=== PATIENT | female | born 1945 ===

== ENCOUNTER → 2021-02-09 09:28 | Outpatient (BNVA) | payer MEDICARE, MEDICAID, SELFPAY | PROVIDERS: PCP Nurse Practitioner Primary Care; Referring Provider Nurse Practitioner Primary Care; Visit Provider Internal Medicine | DX: I49.3 Ventricular premature depolarization (principal); I10 Essential (primary) hypertension | CPT/HCPCS: 93005; 99202 ==

== ENCOUNTER 2021-03-26 13:07 | Outpatient (REF) | payer MEDICARE, MEDICAID, SELFPAY ==
--- NOTE | ~2021-03-26 | MM_ITS ---
EXAMINATION: BONE DENSITOMETRY CLINICAL INDICATION: Osteoporosis. COMPARISON: None (current study represents initial baseline exam). TECHNIQUE: Using a [employer] DXA System (software version: 13.1) manufactured by [email or web address], dual-energy x-ray absorptiometry was performed of the lumbar spine and left hip. The images are of good technical quality. Summary results are attached. FINDINGS: AP SPINE L1-L3 (excluding L4): The data of L1-L4 has been changed to exclude the L4 vertebral body, because degenerative changes at this level may cause overestimation of lumbar spine density. BMD 1.016 g/cm2, Z-score -0.1, T-score -1.3, osteopenia. LEFT FEMUR, NECK: BMD 0.832 g/cm2, Z-score 0.1, T-score -1.5, osteopenia. LEFT FEMUR, TOTAL: BMD 0.976 g/cm2, Z-score 1.1, T-score -0.2, normal. IDENTIFIED RISK FACTORS: Osteoporosis. Early menopause, secondary osteoporosis, hysterectomy, bilateral oophorectomy. HISTORY OF FRACTURE: None listed. MEDICATIONS: Vitamin D, bisphosphonate. MM/XR DEXA axial skeleton IMPRESSION: 1. DIAGNOSIS: Osteopenia based on the lowest T-score value of -1.5 in the femoral neck applying World Health Organization criteria. 2. 10-YEAR FRACTURE RISK PREDICTION, FRAX: Major osteoporotic fracture (clinical spine, forearm, hip or shoulder) 6.1%. Hip fracture 1.2%. 3. Treatment Recommendations: NOF guidelines recommend consideration for treatment in postmenopausal women and men age 50 and older presenting with the following: -A hip or vertebral (clinical or morphometric) fracture. -T-score less than or equal to -2.5 at the femoral neck or spine after appropriate evaluation to exclude secondary causes. -Low bone mass at the hip or spine and a 10-year fracture probability by FRAX of greater than or equal to 3% for hip fracture or greater than or equal to 20% for major osteoporotic fracture based on the [place] adapted WHO algorithm. 4. Other Recommendations: All treatment decisions require clinical judgment and consideration of individual patient factors, including patient preferences, comorbidities, previous drug use, risk factors not captured in the FRAX model (e.g. frailty, falls, vitamin D deficiency, increased bone turnover, interval significant decline in bone density) and possible under or overestimation of fracture risk by FRAX. Additional medical evaluation for secondary cause of low bone mineral density may be appropriate. FUTURE SCAN RECOMMENDATION: People with diagnosed cases of osteoporosis or at high risk for fracture should have regular bone mineral density tests. For patients eligible for Medicare, routine testing is allowed once every 2 years. The testing frequency can be increased to one year for patients who have rapidly progressing disease, those who are receiving or discontinuing medical therapy to restore bone mass, or have additional risk factors.
--- NOTE | 2021-03-26 14:10 | HM_ITS ---
Total monitoring time 2 days and 13 hours. Underlying rhythm is sinus. Average heart rate 70/Min. Minimum 58/Min. Maximum 120/Min. No atrial fibrillation or flutter or AV blocks or pauses. Frequent supraventricular ectopy. [place] 5.9%. 236 supraventricular episodes; longest, 17 beats at 118/min. Occasional ventricular ectopy. 2 morphologies and 12 couplets. Overall burden 0.85%. No patient events. MTDD
--- NOTE | 2021-03-26 14:10 | CA_ITS ---
Transthoracic Echocardiogram Patient (Last, First, Middle): Lidia Paez, Gender: Female Date of : 1945 Age: 76 Procedure Date: 03/26/2021 Procedure Type: Transthoracic Echocardiogram Location: OP Height: 147.32 cm Weight: 81.65 kg BSA: 1.74 m2 Heart Rate: bpm BP: 122 / 60 mmHg Supervisor Coin Machine: Referring MD: Pedro Luis Culp MD Commercial Credit Portfolio Manager: Raleigh Loaiza MD Symptoms: I49.3 - Ventricular premature depolarization Study Quality: Fair ECG Rhythm: Sinus with extra beats Conclusions: - 1. Normal LV systolic function with grade 1 diastolic dysfunction 2. Mildly dilated left atrium 3. Normal cardiac valvular Doppler 4. Normal RV systolic pressure 5. Trivial pericardial effusion Findings Left Ventricle Normal left ventricular size, thickness, and systolic function. The visually estimated ejection fraction is between 60-65%. Spectral Doppler is indicative of an impaired relaxation filling pattern. E/E prime ratio is <8, consistent with normal filling pressures. Evidence suggests grade I (mild) diastolic dysfunction. Right Ventricle Normal right ventricular cavity size and systolic function. Atria The left atrium is mildly dilated. There is no evidence of interatrial shunt. The right atrium is likely dilated. Aortic Valve Normal aortic valve structure and function. There is no aortic valve stenosis. There is no aortic valve regurgitation. Mitral Valve Normal mitral valve structure and function. There is trace mitral valve regurgitation. There is no mitral valve stenosis. Pulmonic Valve The pulmonic valve is likely normal. There is trace pulmonic valve regurgitation. Tricuspid Valve Normal tricuspid valve structure. There is trace tricuspid valve regurgitation. The right ventricular systolic pressure is normal. The right ventricular systolic pressure is 19 mmHg. There is no evidence of pulmonary hypertension. Great Vessels All visible segments of the aorta are normal in size. The pulmonary artery was not well visualized. Venous The inferior vena cava is normal in size and collapses greater than 50% with inspiration. Pericardium/Pleural There is a trivial circumferential pericardial effusion. Prior Study Comparison No prior study available for comparison. Measurements 2D Linear Measurements IVSd: 1.00 0.6-0.9/0.6-1.0 cm LVIDd: 4.82 3.9-5.3/4.2-5.9 cm LVIDd Index: 2.77 2.4-3.2/2.2-3.1 cm/m2 LVIDs: 3.31 2.0-3.6 cm LVPWd: 1.03 0.7-1.1 cm Ao Root: 2.60 2.1-3.5 cm LA Diam: 3.80 2.7-3.8/3.0-4.0 cm LAIDs Index: 2.18 1.5-2.3 cm/m2 LV Mass: 217.82 67-162/88-224 g LV Mass Index: 125.18 43-95/49-115 g/m2 LVOT Diam: 2.00 3.0+(-)1.3 cm 2D Systolic Function EF 4C: 60.30 >55% EF 2C: 58.10 >55% EF BiP: 60.00 >55% Mitral Valve MV Pk E: 0.55 MV PK A: 0.78 MV Decel Time: 236.00 E/A: 0.70 E'Lateral: 7.72 E'Medial: 5.22 E/E' Med: 10.60 E/E' Lat: 7.10 PHT: 69.00 MVA PHT: 3.19 Decel Zapata: 2.34 Aortic Valve AoV Pk Lloyd: 1.52 AoV Mn Lloyd: 1.03 AoV VTI: 0.40 AoV Pk Grad: 9.00 Aov Mn Grad: 5.00 RAY Cont.VTI: 1.65 LVOT LVOT Pk Lloyd: 0.83 LVOT Mn Lloyd: 0.57 LVOT VTI: 0.21 LVOT Pk Grad: 3.00 LVOT Mn Grad: 2.00 LVOT Diam: 2.00 LVOT Area: 3.14 Diastolic Function MV Pk E: 0.55 MV Pk A: 0.78 E/A: 0.70 E'Medial: 5.22 E/E' Med: 10.60 E' Laterial: 7.72 E/E' Lat: 7.10 Tricuspid Valve TR Pk Lloyd: 1.97 TR Pk Grad: 16.00 RA Press: 3.00 RVSP: 19.00 Great Vessels Aorta Ao Root-2D: 2.60 2.0-3.7 cm Ao Asc: 2.90 2.1-3.4 cm Pulmonary Valve PV Pk Lloyd: 1.07 Peak PV Grad: 5.00 Updated in Other Vendor System with Status of Final Raleigh Loaiza MD electronically signed on 03/27/2021 12:25:33 PM with status of Final
== END 2021-03-26 13:08 | disposition home or self-care (01) ==
LOC: HO.MAMMO 13:07
PROVIDERS: Visit Provider Internal Medicine
DX: Z13.820 Encounter for screening for osteoporosis (principal); M81.0 Age-related osteoporosis without current pathological fracture; Z78.0 Asymptomatic menopausal state; Z79.899 Other long term (current) drug therapy; I49.3 Ventricular premature depolarization
CPT/HCPCS: 77080; 93242; 93306

== ENCOUNTER → 2021-04-07 12:45 | Outpatient (BNVA) | payer MEDICARE, MEDICAID, SELFPAY | PROVIDERS: PCP Nurse Practitioner Primary Care; Referring Provider Nurse Practitioner Primary Care; Visit Provider Nurse Practitioner Family | DX: I49.1 Atrial premature depolarization (principal); I49.3 Ventricular premature depolarization; I10 Essential (primary) hypertension; R00.2 Palpitations | CPT/HCPCS: 99212 ==

== ENCOUNTER 2021-05-20 11:30 | Outpatient (REF) | payer MEDICARE, MEDICAID, SELFPAY ==
[2021-05-20 12:58] LABS: MANUAL DIFF FLAG NO
[2021-05-20 13:24] LABS: Basophils Percent Auto 0.3 % (0-2); Eosinophils Absolute Auto 0.1 X10*3/uL (0.0-0.4); Hematocrit 37.7 % (37.0-47.0); Hemoglobin 12.5 g/dl (12.0-16.0); Imm Gran Abs Auto 0.01 X10*3/uL (0.00-0.03); Imm Gran Pct Auto 0.2 % (0.0-0.4); Lymphocytes Absolute Auto 2.3 X10*3/uL (1.2-4.9); Lymphocytes Percent Auto 38.5 % (20-40); Mean Corpuscular HGB Conc 33.2 g/dl (31.0-35.0); Mean Corpuscular Hemoglobin 28.8 pg (27.0-33.0); Mean Corpuscular Volume 86.9 fL (80.0-98.0); Mean Platelet Volume 10.9 fL (9.4-12.3); Monocytes Absolute Auto 0.5 X10*3/uL (0.1-1.2); Monocytes Percent Auto 7.7 % (2-11); Neutrophils Absolute Auto 3.1 x10*3/uL (2.0-8.3); Neutrophils Percent Auto 52.3 % (45-73); Platelet Count 156 X10*3/uL (160-400); Red Blood Count 4.34 X10*6/uL (4.20-5.50); White Blood Count 5.8 X10*3/uL (4.8-10.8)
[2021-05-20 14:05] LABS: Alanine Aminotransferase 27 U/L (0-31); Albumin Level 4.1 g/dL (3.5-5.0); Alkaline Phosphatase 52 U/L (39-117); Anion Gap 11 (12-20); Aspartate Amino Transferase 26 U/L (5-31); Bilirubin Total 0.8 mg/dL (0.0-1.0); Blood Urea Nitrogen 10 mg/dL (9-16); Calcium 9.7 mg/dL (8.4-10.2); Carbon Dioxide 27 mmol/L (22-29); Chloride 100 mmol/L (96-108); Estimated Glomerular Filt Rate > 60; Glucose Random 113 mg/dL (60-115); Potassium 4.4 mmol/L (3.3-5.1); Sodium 134 mmol/L (135-145); Total Protein 8.4 g/dL (6.5-8.0)
[2021-05-20 14:17] LABS: TSH reflex Free T4 0.49 uIU/mL (0.32-4.0)
== END 2021-05-20 11:31 | disposition home or self-care (01) ==
LOC: HO.LAB 11:30
PROVIDERS: PCP Nurse Practitioner Primary Care; Referring Provider Nurse Practitioner Primary Care; Visit Provider Nurse Practitioner
DX: K59.09 Other constipation (principal)
CPT/HCPCS: 36415; 80053; 84443; 85025; 99202

== ENCOUNTER → 2021-07-16 12:26 | Outpatient (BNVA) | payer MEDICARE, MEDICAID, SELFPAY | PROVIDERS: PCP Nurse Practitioner Primary Care; Visit Provider Nurse Practitioner | DX: K59.09 Other constipation (principal); R14.0 Abdominal distension (gaseous) | CPT/HCPCS: 99212 ==

== ENCOUNTER → 2021-08-02 12:31 | Outpatient (BNVA) | payer MEDICARE, SELFPAY | PROVIDERS: PCP Nurse Practitioner Primary Care; Referring Provider Nurse Practitioner Primary Care; Visit Provider Nurse Practitioner | DX: K59.09 Other constipation (principal) | CPT/HCPCS: 99212 ==

== ENCOUNTER 2021-08-06 14:05 | Outpatient (REF) | payer OTHER, SELFPAY ==
--- NOTE | ~2021-08-06 | MM_ITS ---
EXAMINATION: MM SCREENING DIGITAL BREAST TOMOSYNTHESIS, BILATERAL CLINICAL INFORMATION: Screening. Asymptomatic. Unable to locate prior outside imaging. Age 76. The lifetime risk of breast cancer based on the Tyrer-Cuzick Model is 3%. COMPARISON: None. TECHNIQUE: Digital breast tomosynthesis is performed in both the craniocaudal and mediolateral oblique views along with computer-aided detection (CAD). Synthesized 2D images are generated from the tomosynthesis. Additional left MLO view is provided. FINDINGS: There are scattered areas of fibroglandular density (ACR BI-RADS breast composition Category b). There are no significant masses, abnormal calcifications, or other abnormalities. No architectural abnormality. There are scattered bilateral round and vascular calcifications. The axilla and skin contours are unremarkable. MM/MM tomosynthesis screening BI IMPRESSION: No mammographic evidence of malignancy. ASSESSMENT: BI-RADS 2: Benign RECOMMENDATION: Routine annual mammography screening. This patient's information was entered into a reminder system with a target due date for their next mammogram.
== END 2021-08-06 14:06 | disposition home or self-care (01) ==
LOC: HO.MAMMO 14:05
PROVIDERS: Visit Provider Nurse Practitioner Primary Care
DX: Z12.31 Encounter for screening mammogram for malignant neoplasm of breast (principal)
CPT/HCPCS: 77063; 77067

== ENCOUNTER → 2021-10-12 11:46 | Outpatient (BNVA) | payer OTHER, SELFPAY | PROVIDERS: PCP Nurse Practitioner Primary Care; Referring Provider Nurse Practitioner Primary Care; Visit Provider Nurse Practitioner Family | DX: R00.2 Palpitations (principal); I49.1 Atrial premature depolarization; I49.3 Ventricular premature depolarization; I10 Essential (primary) hypertension; Z79.899 Other long term (current) drug therapy | CPT/HCPCS: 99212 ==

== ENCOUNTER → 2021-11-18 08:46 | Outpatient (BNVA) | payer OTHER, SELFPAY | PROVIDERS: PCP Nurse Practitioner Primary Care; Visit Provider Surgery Vascular Surgery | DX: I83.11 Varicose veins of right lower extremity with inflammation (principal) | CPT/HCPCS: 99212 ==

== ENCOUNTER 2022-01-11 08:06 | Outpatient (REF) | payer OTHER, SELFPAY ==
--- NOTE | ~2022-01-11 | US_ITS ---
EXAMINATION: RIGHT and LEFT LOWER EXTREMITY VENOUS ULTRASOUND (Reflux Exam) CLINICAL INDICATION: Varicose veins of right lower extremity with inflammation. COMPARISON: None. TECHNIQUE: Color flow triplex imaging and compression Doppler was performed to evaluate both the deep and the superficial systems bilaterally. To evaluate the superficial system, the examination was performed in the upright position. Color-flow Doppler ultrasound and compression ultrasound were utilized. In addition, maneuvers were utilized to demonstrate reflux. FINDINGS: 1. DEEP VENOUS ULTRASOUND OF THE RIGHT LOWER EXTREMITY: Respiratory variation, normal compression and augmented flow are noted in the right common femoral vein as well as the right popliteal vein and there is no evidence of deep venous thrombosis at these locations. There is no evidence of reflux in the deep system in either the common femoral vein or the popliteal vein. There is no evidence of a Johns's cyst. 2. SUPERFICIAL ULTRASOUND WITH DOPPLER OF RIGHT LOWER EXTREMITY: The right great saphenous vein at the saphenofemoral junction measures 11 mm, at the mid thigh 4 mm, idrex-gsu-ycda 4 mm, hcmcd-wdg-sltx 5 mm, at mid calf 3 mm and at the ankle measures 3 mm. There is reflux in the greater saphenous vein at the mid calf and ankle measuring 1808 ms. The right small saphenous vein measures 2 mm and shows reflux measuring 2920 ms. 3. DEEP VENOUS ULTRASOUND OF THE LEFT LOWER EXTREMITY: Respiratory variation, normal compression and augmented flow are noted in the left common femoral vein as well as the left popliteal vein and there is no evidence of deep venous thrombosis at these locations. There is no evidence of reflux in the deep system in either the common femoral vein or the popliteal vein. . There is no evidence of a Johns's cyst. 4. SUPERFICIAL ULTRASOUND WITH DOPPLER OF LEFT LOWER EXTREMITY: Left great saphenous vein at the saphenofemoral junction measures 10 mm, at the mid thigh 4 mm, rmdxf-frr-jmfu 6 mm, heakg-hyd-afsx 4 mm, at mid calf 3 mm and at the ankle measures 2 mm. There is reflux at the ankle measuring 2212 ms, no other areas of reflux. The left small saphenous vein measures 2 mm and shows reflux at the distal calf measuring 1720 ms. US/US venous duplex LE BI IMPRESSION: 1. No evidence of reflux or thrombus in the common femoral veins or popliteal veins bilaterally. 2. There is reflux in the right great saphenous vein at the mid calf and ankle and in the left great saphenous vein at the ankle. Reflux in the small saphenous veins bilaterally.
== END 2022-01-11 08:07 | disposition home or self-care (01) ==
LOC: HO.US 08:06
PROVIDERS: Visit Provider Surgery Vascular Surgery
DX: I83.11 Varicose veins of right lower extremity with inflammation (principal)
CPT/HCPCS: 93970

== ENCOUNTER → 2022-01-18 11:13 | Outpatient (BNVA) | payer OTHER, SELFPAY | PROVIDERS: PCP Nurse Practitioner Primary Care; Visit Provider Surgery Vascular Surgery | DX: I83.11 Varicose veins of right lower extremity with inflammation (principal) | CPT/HCPCS: 99212 ==

== ENCOUNTER → 2022-05-19 14:17 | Outpatient (BNVA) | payer OTHER, SELFPAY | PROVIDERS: PCP Nurse Practitioner Primary Care; Visit Provider Surgery Vascular Surgery | DX: I83.11 Varicose veins of right lower extremity with inflammation (principal) | CPT/HCPCS: 99212 ==

== ENCOUNTER → 2022-07-08 09:27 | Outpatient (BNVA) | payer OTHER, SELFPAY | PROVIDERS: PCP Nurse Practitioner Primary Care; Visit Provider Surgery Vascular Surgery | DX: I83.11 Varicose veins of right lower extremity with inflammation (principal) | CPT/HCPCS: 36475 ==

== ENCOUNTER 2022-07-11 15:15 | Outpatient (REF) | payer OTHER, SELFPAY ==
--- NOTE | ~2022-07-11 | US_ITS ---
EXAMINATION: TRIPLEX SCANNING OF RIGHT LOWER EXTREMITY; SUPERFICIAL ULTRASOUND WITH DOPPLER OF RIGHT LOWER EXTREMITY CLINICAL INFORMATION: Status post RF ablation of the right small saphenous vein. Originally performed on 07/08/2022. COMPARISON: 01/11/2022. TECHNIQUE: Color flow triplex imaging and compression Doppler were performed as well as superficial ultrasound with Doppler. FINDINGS: TRIPLEX SCANNING OF RIGHT LOWER EXTREMITY: Respiratory variation, normal compression and augmented flow are noted throughout the lower extremity. The visualized common femoral vein, femoral vein, profunda femoral vein, popliteal vein and the calf veins show no evidence of deep venous thrombosis. There is no evidence of Johns's cyst. SUPERFICIAL ULTRASOUND WITH DOPPLER OF RIGHT LOWER EXTREMITY: The right small saphenous vein is occluded from the access site to 4 cm before the popliteal junction. There is no extension of thrombus into the deep system. US/US venous duplex LE RT IMPRESSION: 1. Normal triplex scan of the right without evidence of deep venous thrombosis. 2. Excellent appearance status post ablation of the right small saphenous vein.
== END 2022-07-11 15:16 | disposition home or self-care (01) ==
LOC: HO.US 15:15
PROVIDERS: PCP Nurse Practitioner Primary Care; Visit Provider Surgery Vascular Surgery
DX: M79.604 Pain in right leg (principal)
CPT/HCPCS: 93971

== ENCOUNTER → 2022-07-21 09:00 | Outpatient (BNVA) | payer OTHER, SELFPAY | PROVIDERS: PCP Nurse Practitioner Primary Care; Visit Provider Surgery Vascular Surgery | DX: I83.11 Varicose veins of right lower extremity with inflammation (principal) | CPT/HCPCS: 99212 ==

== ENCOUNTER 2022-10-12 08:46 | Outpatient (AMB) | payer OTHER, SELFPAY ==
--- NOTE | 2022-10-12 08:52 | MHC.OFFVIS ---
Intake Vital Signs 10/12/22 08:53 Height 5 ft 1 in Weight 191 lb 12.835 oz BMI 36.2 BP 110/56 L Blood Pressure Location Lt brachial Position Sitting Pulse 89 Intake Visit Reasons: 1 yr f/up per dc Intake Note: 1 year follow up w/ EKG Aircraft Instrument Tester Required: Yes Aircraft Instrument Tester Language: Hull And Deck Remover Name: Renay [id number] Accompanied by: Daughter Allergies No Known Allergies Allergy (Verified 10/12/22 08:53) Medication List - Last Reconciled 10/12/22 by Pedro Luis Culp MD nifedipine ER 30 mg PO DAILY HPI HPI Comments History of Present Illness Details Lidia returns for follow-up. In the past she has been seen regarding premature atrial ventricular contractions. Overall, she states she feels fine. No specific complaints like angina or shortness of breath or in fact anything cardiac sounding. She states she is doing very well. Has hypertension for which she is on nifedipine and has taken this for a while. [facility] Medical History Chronic constipation Essential hypertension Multiple food allergies Osteoporosis Prediabetes Surgical History H/O section History of cataract surgery History of cholecystectomy History of colonoscopy History of hemorrhoidectomy (~1993) History of hysterectomy History of partial colectomy Family History Father No problems noted. Mother No problems noted. Social History Patient Tobacco Use Status: Never used Tobacco Review of Systems Const Denies weakness ENT Denies dizziness Card Denies chest pain, Denies chest pain with activity, Denies syncope, Denies rapid heart rate, Denies pedal edema, Denies edema, Denies leg edema, Denies lightheadedness, Denies palpitations, Denies dyspnea, Denies dyspnea on exertion and Denies orthopnea Resp Denies cough, Denies dyspnea and Denies dyspnea on exertion GI Denies hematochezia and Denies change in stool character Musc Denies abnormal gait, Denies muscle cramps, Denies muscle weakness, Denies numbness, Denies radiating pain into limb and Denies tingling Neuro Denies abnormal gait, Denies dizziness, Denies syncope, Denies numbness, Denies tingling and Denies weakness Endo Denies palpitations Physical Exam Vital Signs: Last Vital Signs Pulse 89 10/12/22 08:53 BP 110/56 L 10/12/22 08:53 BMI result Body Mass Index 36.2 Const General: comfortable and no acute distress Orientation/consciousness: patient oriented x3 HEENT Other: Unremarkable Head: Yes normal to inspection Neck Neck: Yes normal visual inspection Chest Chest palpation & inspection: normal inspection of the chest Resp Auscultation: clear to auscultation bilaterally Cardio Palpation: normal PMI Heart sounds: S1 normal heart sound present, S2 normal heart sound present, no gallops, no murmurs and no rubs GI Palpation (GI): Soft to palpation Back/Spine/Pelvis Other: unremarkable Skin General skin exam: no rashes or lesions noted Neuro General: patient oriented x3 Extrem General: Yes normal to inspection Psych Mental Status: mental status grossly normal Office Procedures EKG Details: EKG with sinus rhythm at 89/Min; no significant ST-T changes; premature supraventricular complexes; [place] [id number], Complete Assessment & Plan Assessment & Plan (1) PAC (premature atrial contraction): Code(s): I49.1 - Atrial premature depolarization Plan: Holter shows underlying sinus rhythm with frequent supraventricular ectopy. Possibly increased risk of atrial fibrillation the future and we can repeat another Holter before next visit. (2) PVC (premature ventricular contraction): Code(s): I49.3 - Ventricular premature depolarization Plan: In a prior EKG, premature ventricular complexes seen but nothing on EKG today. She does not have any symptoms either. No specific interventions. (3) Essential hypertension: Code(s): I10 - Essential (primary) hypertension Plan: Stable on nifedipine. No changes. Plan golf caddie used in discussion. Orders: Orders CA echo transthoracic complete 51 Weeks I49.1 - Atrial premature depolarization ECG 3 day holter monitor 51 Weeks I49.1 - Atrial premature depolarization, I49.3 - Ventricular premature depolarization Coding Level of Care Code Est Pt Level 3 (89657) Diagnoses PAC (premature atrial contraction) I49.1 PVC (premature ventricular contraction) I49.3 Essential hypertension I10 CPT Codes EKG - CPT: [id number], Complete ([id number])
[2022-10-12 08:53] VITALS: BP 110/56; PULSE 89; BMI 36.2
== END 2022-10-12 09:10 | disposition home or self-care (01) ==
PROVIDERS: PCP Nurse Practitioner Primary Care; Referring Provider Nurse Practitioner Primary Care; Visit Provider Internal Medicine
DX: I49.1 Atrial premature depolarization (principal); I49.3 Ventricular premature depolarization; I10 Essential (primary) hypertension
CPT/HCPCS: 93010; 99213

== ENCOUNTER → 2022-10-12 08:46 | Outpatient (BNVA) | payer MEDICARE, MEDICAID, SELFPAY | PROVIDERS: PCP Nurse Practitioner Primary Care; Referring Provider Nurse Practitioner Primary Care; Visit Provider Internal Medicine | DX: I49.1 Atrial premature depolarization (principal); I49.3 Ventricular premature depolarization; I10 Essential (primary) hypertension; Z79.899 Other long term (current) drug therapy | CPT/HCPCS: 93005; 99212 ==

== ENCOUNTER 2023-06-30 18:29 | Outpatient (REF) | payer MEDICARE, SELFPAY ==
[2023-07-01 08:17] LABS: Bacterial Vaginosis PCR NEGATIVE (Negative); Candida Group PCR NOT DETECTED (Not Detect); Candida glab krusei PCR NOT DETECTED (Not Detect); Trichomonas vaginalis PCR NOT DETECTED (Not Detect)
== END 2023-06-30 18:30 | disposition home or self-care (01) ==
LOC: HO.HHCLNP 18:29
PROVIDERS: Visit Provider Nurse Practitioner Primary Care
DX: N94.9 Unspecified condition associated with female genital organs and menstrual cycle (principal)
CPT/HCPCS: 0352U

== ENCOUNTER 2023-09-21 09:54 | Outpatient (AMB) | payer OTHER, SELFPAY ==
[2023-09-21 10:11] VITALS: BP 106/45; PULSE 93; BMI 36.0
--- NOTE | 2023-09-21 10:11 | A.OFFVIS_ITS ---
Vital Signs 09/21/23 10:11 Height 5 ft 1 in Weight 190 lb 7.67 oz BMI 36.0 BP 106/45 L Blood Pressure Location Lt brachial Position Sitting Pulse 93 Intake Visit Reasons: constipation Intake Note: Lidia presents in the office as a 3 week follow up for CIC. CC: PT states that she is still having constipation still. She wants to change the medication that she is on. She feels like it is too strong. 30 min after taking meds she has to go to the bathroom and she is in there for a long time. She says she wants something that it not too heavy on her stomach. The medication is giving her diarrhea. Electronic Wirer Required: Yes Electronic Wirer Name: [facility] interpeter Accompanied by: Family/Other Allergies No Known Allergies Allergy (Verified 10/12/22 08:53) PFSH Medical History Chronic constipation Essential hypertension Multiple food allergies Osteoporosis Prediabetes Surgical History H/O section History of cataract surgery History of cholecystectomy History of colonoscopy History of hemorrhoidectomy (~1993) History of hysterectomy History of partial colectomy Family History Father No problems noted. Mother No problems noted. Social History Patient Tobacco Use Status: Never used Tobacco Coding
--- NOTE | 2023-09-21 10:11 | A.OFFVIS_ITS ---
Vital Signs 09/21/23 10:11 Height 5 ft 1 in Weight 190 lb 7.67 oz BMI 36.0 BP 106/45 L Blood Pressure Location Lt brachial Position Sitting Pulse 93 Intake Visit Reasons: constipation Allergies No Known Allergies Allergy (Verified 10/12/22 08:53) HPI HPI constipation: Details: Assessment & Plan (1) Chronic constipation: Code(s): K59.09 - Other constipation Plan: French #[id number], Miky. She is here with a female family member who is supportive. She received the Trulance, but it is too strong for her. She was well controlled on the Linzess 290 so we will try to get that approved for her now that she has failed the Trulance which was preferred by her insurance. She continues on the simethicone for her gas trapping. Return office visit in 6 weeks Medications: New lubiprostone (Amitiza) 8 mcg PO BID 60 caps 6RF K59.09 - Other constipation On Hold plecanatide (Trulance) Hold Comment: Doctor's Order 3 mg PO DAILY 30 tabs 6RF K59.09 - Other constipation TODAY'S VISIT French #Vanessara White She is here today with multiple family members who are supportive Patient has been lost follow-up since 2021; she says that she lost her number and was not sure where to call for GI follow-up. I made her she had multiple copies of my business card. She has been out of the Amitiza since she has been lost to follow up since 07/2021 - but when she had it the effect was wonderful. She is very concerned that the continued CIC will trigger her hemorrhoids, which required surgery in the past. She is having a lot of gas and bloating. This would likely be r/t the CIC. Apparently, she was telling her PCP about her sx and they were telling her to just take the medication, however, she was not receiving the medicine as it likely needed a PA. She thinks she is due for a colonoscopy, her last being in [place] about 10 years ago. She has never had polyps and there is no known FHX of crc or polyps. She watches the Cologuard video in French and agrees that this would be a good screening option for her. ROV 6 weeks. PFSH Medical History Chronic constipation Essential hypertension Multiple food allergies Osteoporosis Prediabetes Surgical History H/O section History of cataract surgery History of cholecystectomy History of colonoscopy History of hemorrhoidectomy (~1993) History of hysterectomy History of partial colectomy Family History Father No problems noted. Mother No problems noted. Social History Patient Tobacco Use Status: Never used Tobacco Review of Systems Const Denies fatigue, Denies fever(s), Denies night sweats, Denies poor appetite and Denies weight loss Eyes Details: glasses Reports requires corrective lenses ENT Reports Normal hearing present, Denies dental pain, Denies dysphagia, Denies hearing loss, Denies mouth pain, Denies odynophagia, Denies throat swelling, Denies tongue swelling and Reports other (Dentition adequate) Card Reports no additional complaints Resp Reports no additional complaints GI Details: Denies abdominal pain, Denies melena, Reports bloating, Denies hematochezia, Reports constipation, Denies GI cramping, Denies dysphagia, Denies excessive flatus, Denies early satiety, Denies heartburn, Denies diarrhea, Denies nausea, Denies odynophagia, Denies vomiting and Denies hematemesis Skin/Breast Denies pruritus, Denies lesions, Denies rash and Denies jaundice Neuro Reports Normal hearing present and Denies Abnormal speech present Endo Denies fatigue Aller/Immun Denies throat swelling and Denies tongue swelling Physical Exam Vital Signs: Last Vital Signs Pulse 93 09/21/23 10:11 BP 106/45 L 09/21/23 10:11 BMI result Body Mass Index 36.0 Const General: cooperative, no acute distress, well developed and well groomed Nutritional Appearance: well nourished and obese Orientation/consciousness: oriented to person, oriented to place and oriented to time Limitations: language barrier HEENT Head: Yes normocephalic and Yes atraumatic Eyes General: appearance normal, both eyes and all related structures Pupils: Equal, round and reactive pupils present Neck Neck: Yes normal visual inspection and Yes no lymphadenopathy Thyroid: Thyroid normal Resp Effort & Inspection: normal respiratory effort and able to speak in complete sentences Auscultation: clear to auscultation bilaterally Cardio Rate: regular rate Rhythm: regular rhythm Heart sounds: Normal, physiologic split S2 sound present Peripheral pulses: radial pulses present and posterior tibial pulses present GI Inspection: No distended, Yes Abdominal panniculus present and Yes obesity Palpation (GI): Soft to palpation, nontender, no guarding, not rigid and No hepatosplenomegaly present Percussion: Yes normal to percussion Auscultation: normal bowel sounds Rectal Exam - Female: deferred Skin General skin exam: no rashes or lesions noted, turgor normal, skin not dry, no jaundice, No spider nevi and no striae Rashes: no rashes Nails: normal Neuro General: oriented to person, oriented to place and oriented to time Cranial nerves: Yes Equal, round and reactive pupils present and Yes Normal hearing present Speech: No Abnormal speech present Extrem General: Yes normal to inspection, No clubbing, No cyanosis and No edema Psych Appearance: grossly normal and well kempt Mental Status: mental status grossly normal Speech and movement: Normal speech and movement present Affect: normal affect Attitude: cooperative Thought process: Normal thought process present and not confabulating Thought content: Normal thought content present Insight: Limited insight present (Psych) Judgement: Limited judgement present (Psych) Assessment & Plan Assessment & Plan (1) Chronic constipation: Code(s): K59.09 - Other constipation Category: Medical (2) Abdominal bloating: Code(s): R14.0 - Abdominal distension (gaseous) Category: Medical (3) Colon cancer screening: Comment: We will be doing Cologuard Code(s): Z12.11 - Encounter for screening for malignant neoplasm of colon Category: Medical Plan French #Vanessa Live She is here today with multiple family members who are supportive Patient has been lost follow-up since 2021; she says that she lost her number and was not sure where to call for GI follow-up. I made her she had multiple copies of my business card. She has been out of the [facility] since she has been lost to follow up since 07/2021 - but when she had it the effect was wonderful. She is very concerned that the continued CIC will trigger her hemorrhoids, which required surgery in the past. She is having a lot of gas and bloating. This would likely be r/t the CIC. Apparently, she was telling her PCP about her sx and they were telling her to just take the medication, however, she was not receiving the medicine as it likely needed a PA. She thinks she is due for a colonoscopy, her last being in [place] about 10 years ago. She has never had polyps and there is no known FHX of crc or polyps. She watches the [employer] video in French and agrees that this would be a good screening option for her. ROV 6 weeks Medications: New lubiprostone (Amitiza) 8 mcg PO BID 60 caps 6RF K59.09 - Other constipation lubiprostone (Amitiza) 8 mcg PO BID 60 caps 6RF K59.09 - Other constipation Coding Level of Care Code Est Pt Level 4 (26961) Diagnoses Chronic constipation K59.09 Abdominal bloating R14.0 Colon cancer screening Z12.11 Time Spent (min) 37
== END 2023-09-21 10:51 | disposition home or self-care (01) ==
PROVIDERS: PCP Nurse Practitioner Primary Care; Visit Provider Nurse Practitioner
DX: K59.09 Other constipation (principal); R14.0 Abdominal distension (gaseous); Z12.11 Encounter for screening for malignant neoplasm of colon
CPT/HCPCS: 99214

== ENCOUNTER → 2023-09-21 09:54 | Outpatient (BNVA) | payer OTHER, SELFPAY | PROVIDERS: PCP Nurse Practitioner Primary Care; Visit Provider Nurse Practitioner | DX: K59.09 Other constipation (principal); R14.0 Abdominal distension (gaseous) | CPT/HCPCS: 99212 ==

== ENCOUNTER 2023-09-27 14:13 | Outpatient (AMB) | payer OTHER, SELFPAY ==
--- NOTE | 2023-09-27 14:36 | A.OFFVIS_ITS ---
Intake Visit Reasons: mixed stress and urge incontinence Intake Note: Lidia is a 78 year old female who presents to the office today for mixed stress and urge incontinence. Allergies No Known Allergies Allergy (Verified 09/27/23 14:37) HPI Comments Details: Lidia is a 78 year old female who is here with her daughter. Romanian interpretor utilized. She is currently on Myrbetriq 50 mg and triamp cream and estrace cream, states medications have helped a little, leaks associated with urge and coughing also. pelvic exam mild relaxation vaginal wall. Discussed behaviourial modification, pelvic floor PT, further evaluation -sched urod. [facility] Medical History Osteoporosis Multiple food allergies Prediabetes Chronic constipation Essential hypertension Surgical History History of colonoscopy History of partial colectomy History of cholecystectomy History of cataract surgery H/O section History of hysterectomy History of hemorrhoidectomy (~1993) Family History Father No problems noted. Mother No problems noted. Social History Patient Tobacco Use Status: Never used Tobacco Physical Exam Const General: cooperative, healthy appearing and no acute distress Orientation/consciousness: patient oriented x3 HEENT Head: Yes normal to inspection, Yes normocephalic and Yes atraumatic Eyes Conjunctivae: conjunctivae normal Neck Neck: Yes normal visual inspection and Yes trachea midline Chest Chest palpation & inspection: normal inspection of the chest Resp Effort & Inspection: normal respiratory effort Cardio Rate: regular rate GI Inspection: Yes normal to inspection Palpation (GI): Soft to palpation General: No no CVA tenderness External Female Exam: normal external appearance Speculum Exam - Vagina: vagina atrophic Back/Spine/Pelvis Back: No no CVA tenderness Skin General skin exam: no rashes or lesions noted Neuro General: patient oriented x3 Extrem General: No edema Psych Appearance: grossly normal Office Procedures Post Void Residual Post Residual Void Post Void Residual (PVR): 27 [id number] Void Residual by ultrasound Results AMB Urinalysis, Automated UA Leukoctes 0 Syl/uL Last Edit by Kaci Mayo CMA on 09/27/23 14:41 UA Nitrite Negative Last Edit by Kaci Mayo CMA on 09/27/23 14:41 UA Urobilinogen 0.2 mg/dL Last Edit by Kaci Mayo CMA on 09/27/23 14:41 UA Protein 15 mg/dL Last Edit by Kaci Mayo CMA on 09/27/23 14:41 UA pH 6.0 Last Edit by Kaci Mayo CMA on 09/27/23 14:41 UA Blood 10 Mark/uL Last Edit by Kaci Mayo CMA on 09/27/23 14:41 UA Specific [place] 1.015 Last Edit by Kaci Mayo CMA on 09/27/23 14:41 UA Ketone Negative Last Edit by Kaci Mayo CMA on 09/27/23 14:41 UA Bilirubin 0 mg/dL Last Edit by Kaci Mayo CMA on 09/27/23 14:41 UA Glucose 0 mg/dL Last Edit by Kaci Mayo CMA on 09/27/23 14:41 Results Reviewed Results Reviewed: Laboratory Last Values Urine pH (Auto) 6.0 09/27/23 14:37 Specific [place] (Auto) 1.015 09/27/23 14:37 Urine Protein (Auto) 15 mg/dL 09/27/23 14:37 Glucose (UA)(Auto) 0 mg/dL 09/27/23 14:37 Urine Ketones (Auto) Negative 09/27/23 14:37 Urine Blood (Auto) 10 Mark/uL 09/27/23 14:37 Urine Nitrite (Auto) Negative 09/27/23 14:37 Urine Bilirubin (Auto) 0 mg/dL 09/27/23 14:37 Urine Urobilinogen (Auto) 0.2 mg/dL 09/27/23 14:37 Leukocyte Esterase (Auto) 0 Syl/uL 09/27/23 14:37 Assessment & Plan Assessment & Plan (1) Urge incontinence of urine: Code(s): N39.41 - Urge incontinence Category: Medical (2) Atrophic vaginitis: Code(s): N95.2 - Postmenopausal atrophic vaginitis Category: Medical (3) Pelvic floor weakness: Code(s): N81.89 - Other female genital prolapse Category: Medical Plan pt on myrbetriq mixed incontinence schedule urod Orders: Orders AMB Urinalysis Automated 09/27/23 Z13.9 - Encounter for screening, unspecified AMB Post Void Residual by ultrasound 09/27/23 R39.15 - Urgency of urination Urine Culture 09/27/23 N39.0 - Urinary tract infection, site not specified Patient Instructions: The patient had an opportunity to ask questions regarding treatment plan. The patient expressed understanding and agreement with the above treatment plan. The patient is aware they should contact our office by phone for worsening of their current condition or the appearance of new symptoms. Compliance is encouraged with any medications and followup testing that is ordered. It is a privilege to be allowed the opportunity to participate in the urologic care of your patient. If you have any questions or concerns regarding treatment for the above conditions please do not hesitate to contact me. The office telephone contact is [phone]. This note is constructed in part using voice recognition software. While every effort has been made to ensure accuracy psychiatric nursing assistant errors may have been included. Yours sincerely, Ai Mercedes MD Coding Level of Care Code New Pt Level 4 (97227) Diagnoses Urge incontinence of urine N39.41 Atrophic vaginitis N95.2 Pelvic floor weakness N81.89 CPT Codes Post Residual Void - PVR CPT Code: 21336-Gyee Void Residual by ultrasound ([id number])
== END 2023-09-27 16:05 | disposition home or self-care (01) ==
PROVIDERS: PCP Nurse Practitioner Primary Care; Visit Provider Urology
DX: N39.41 Urge incontinence (principal); N95.2 Postmenopausal atrophic vaginitis; N81.89 Other female genital prolapse
CPT/HCPCS: 99204

== ENCOUNTER 2023-09-27 14:13 | Outpatient (REF) | payer OTHER, SELFPAY | END 2023-09-27 14:14 | disposition home or self-care (01) | LOC: HO.LAB 14:13 | PROVIDERS: PCP Nurse Practitioner Primary Care; Visit Provider Urology | DX: N39.41 Urge incontinence (principal); N39.0 Urinary tract infection, site not specified; N95.2 Postmenopausal atrophic vaginitis; N81.89 Other female genital prolapse | CPT/HCPCS: 51798; 81003; 87086; 99202 ==

== ENCOUNTER 2023-10-12 12:50 | Outpatient (AMB) | payer OTHER, SELFPAY ==
[2023-10-12 12:56] VITALS: BP 108/52; PULSE 83; BMI 36.2
--- NOTE | 2023-10-12 12:56 | MHC.OFFVIS ---
Vital Signs 10/12/23 12:56 Height 5 ft 1 in Weight 191 lb 5.78 oz BMI 36.2 BP 108/52 L Blood Pressure Location Rt brachial Position Sitting Pulse 83 Pulse Source Monitor Intake Visit Reasons: 1 yr f/up Home Care Manager Rn Required: Yes Home Care Manager Rn Language: Strategy Lead Name: [id number] magdalene Technical Systems Architect: Technical Systems Architect Present Accompanied by: Daughter Allergies No Known Allergies Allergy (Verified 10/12/23 12:59) Medication List - Last Reconciled 10/12/23 by Ellen Sun NP-C mirabegron ER (Myrbetriq) 25 mg PO DAILY nifedipine ER 30 mg PO QAM HPI HPI 1 yr f/up: Details: Lidia is a 78-year-old female past medical history of hypertension, pre diabetes, atrial and ventricular ectopy who presents for follow-up. Today she reports that she has been doing well since her last visit 10/12/2022. She has not had any hospitalizations or changes to her health. She denies having chest discomfort at rest or with activity. No shortness of breath, PND, orthopnea. She does get mild leg edema if she stands for prolonged period of time. She has no palpitations, lightheadedness, presyncope, syncope, falls. She does activities around the house which she tolerates well. She takes all her meds as directed. Her daughter is present. Certified interpreter used. [facility] Medical History Osteoporosis Multiple food allergies Prediabetes Chronic constipation Essential hypertension Surgical History History of colonoscopy History of partial colectomy History of cholecystectomy History of cataract surgery H/O section History of hysterectomy History of hemorrhoidectomy (~1993) Family History Father No problems noted. Mother No problems noted. Social History Patient Tobacco Use Status: Never used Tobacco Review of Systems Const All systems reviewed & are unremarkable except as noted in HPI and below ENT Denies dizziness Card Denies chest pain, Denies chest pain at rest, Denies chest pain with activity, Denies rapid heart rate, Denies pedal edema, Denies edema, Denies leg edema, Denies lightheadedness, Denies palpitations, Denies dyspnea, Denies dyspnea on exertion and Denies orthopnea Resp Denies cough, Denies dyspnea and Denies dyspnea on exertion GI Denies hematochezia and Denies change in stool character Musc Denies abnormal gait, Denies limited range of motion, Denies muscle cramps, Denies muscle weakness, Denies numbness, Denies radiating pain into limb, Denies stiffness and Denies tingling Neuro Denies abnormal gait, Denies dizziness, Denies numbness and Denies tingling Endo Denies palpitations Physical Exam Vital Signs: BMI result Body Mass Index 36.2 Const General: cooperative, healthy appearing, comfortable and no acute distress Orientation/consciousness: patient oriented x3 Neck Neck: Yes normal visual inspection and Yes no JVD Resp Effort & Inspection: normal respiratory effort Auscultation: clear to auscultation bilaterally, no rales, no rhonchi and no wheezes Cardio Jugular venous distension: no JVD Rate: regular rate Rhythm: regular rhythm Heart sounds: S1 normal heart sound present, S2 normal heart sound present, no murmurs and no rubs Neuro General: patient oriented x3 Extrem General: Yes normal to inspection, No no pedal edema and No calf tenderness Psych Appearance: grossly normal Mental Status: mental status grossly normal Speech and movement: Normal speech and movement present Office Procedures EKG Details: Today, read by me, normal sinus rhythm, low-voltage QRS, rate 83, QTC 444 millisecond [id number], Complete Assessment & Plan Assessment & Plan (1) PAC (premature atrial contraction): Code(s): I49.1 - Atrial premature depolarization Category: Medical Plan: History of PACs and PVCs. Last Holter monitor done 03/26/2021 for 2.5 days showed sinus rhythm with average heart rate 70, no atrial fibrillation, frequent PACs 5.9% of time, short atrial runs, longest 17 beats, occasional PVCs. Last echo 03/26/2021 showed EF 60-65%, grade 1 diastolic dysfunction, mildly dilated left atrium. She has done well over the last year and has no concerning palpitations. Due to the frequency of her atrial ectopy Dr. Culp had ordered a repeat Holter and echo on her last visit. Those tests have not been completed as of yet. Will have her obtain those test and plan to call her with results. No med changes made at this time. Cardiology follow-up in 1 year, sooner if needed (2) PVC (premature ventricular contraction): Code(s): I49.3 - Ventricular premature depolarization Category: Medical Plan: As above (3) Essential hypertension: Code(s): I10 - Essential (primary) hypertension Category: Medical Plan: Well controlled at this time. Continue nifedipine. Orders: Orders CA echo transthoracic complete Today I49.1 - Atrial premature depolarization ECG 3 day holter monitor Today I49.1 - Atrial premature depolarization, I49.3 - Ventricular premature depolarization Coding Level of Care Code Est Pt Level 3 (45568) Diagnoses PAC (premature atrial contraction) I49.1 PVC (premature ventricular contraction) I49.3 Essential hypertension I10 CPT Codes EKG - CPT: 19054-[id number], Complete ([id number]) Time Spent (min) 24
== END 2023-10-12 13:23 | disposition home or self-care (01) ==
PROVIDERS: PCP Nurse Practitioner Primary Care; Visit Provider Nurse Practitioner Family
DX: I49.1 Atrial premature depolarization (principal); I49.3 Ventricular premature depolarization; I10 Essential (primary) hypertension
CPT/HCPCS: 93010; 99213

== ENCOUNTER → 2023-10-12 12:50 | Outpatient (BNVA) | payer OTHER, SELFPAY | PROVIDERS: PCP Nurse Practitioner Primary Care; Visit Provider Nurse Practitioner Family | DX: I10 Essential (primary) hypertension (principal); I49.3 Ventricular premature depolarization; I49.1 Atrial premature depolarization | CPT/HCPCS: 93005; 99212 ==

== ENCOUNTER 2023-11-14 09:59 | Outpatient (REF) | payer OTHER, SELFPAY | END 2023-11-14 10:00 | disposition home or self-care (01) | LOC: HO.LNP 09:59 | PROVIDERS: PCP Nurse Practitioner Primary Care; Visit Provider Urology | DX: Z13.9 Encounter for screening, unspecified (principal); N81.89 Other female genital prolapse; N95.2 Postmenopausal atrophic vaginitis; N39.41 Urge incontinence | CPT/HCPCS: 81003; 87086 ==

== ENCOUNTER 2023-11-14 09:59 | Outpatient (AMB) | payer OTHER, SELFPAY ==
--- NOTE | 2023-11-14 10:35 | AM.OFFVISNUR ---
Intake Visit Reasons: UA/Urodynamics Allergies No Known Allergies Allergy (Verified 10/12/23 12:59) Nursing Note Patient came in to office for UA and urine culture prior to urodynamics next week. She reports doing good. interpreter deaf utilized over the phone, named Elizabeth, # [id number]. UA was collected. Urine culture labeled, order printed and placed with specimens. Results AMB Urinalysis, Automated UA Leukoctes 0 Syl/uL Last Edit by Herve Sharpe RN on 11/14/23 10:34 UA Nitrite Negative Last Edit by Herve Sharpe RN on 11/14/23 10:34 UA Urobilinogen 0.2 mg/dL Last Edit by Herve Sharpe RN on 11/14/23 10:34 UA Protein 0 mg/dL Last Edit by Herve Sharpe RN on 11/14/23 10:34 UA pH 6.5 Last Edit by Herve Sharpe RN on 11/14/23 10:34 UA Blood 0 Mark/uL Last Edit by Herve Sharpe RN on 11/14/23 10:34 UA Specific [place] 1.010 Last Edit by Herve Sharpe RN on 11/14/23 10:34 UA Ketone Negative Last Edit by Herve Sharpe RN on 11/14/23 10:34 UA Bilirubin 0 mg/dL Last Edit by Herve Sharpe RN on 11/14/23 10:34 UA Glucose 0 mg/dL Last Edit by Herve Sharpe RN on 11/14/23 10:34 Assessment & Plan Assessment & Plan Orders: Orders AMB Urinalysis Automated Today Z13.9 - Encounter for screening, unspecified Urine Culture Today N39.41 - Urge incontinence, N81.89 - Other female genital prolapse, N95.2 - Postmenopausal atrophic vaginitis
== END 2023-11-14 10:31 | disposition home or self-care (01) ==
LOC: HO.HUSH 09:59
PROVIDERS: PCP Nurse Practitioner Primary Care; Visit Provider Urology
DX: Z13.9 Encounter for screening, unspecified (principal)

== ENCOUNTER 2023-11-24 07:51 | Outpatient (AMB) | payer OTHER, SELFPAY ==
--- NOTE | 2023-11-24 08:18 | MHC.OFFVIS ---
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 The patient has complaints of urinary incontinence. Currently off bladder meds. Interpretation: During the filling phase sensory urgency was noted, urge was noted at 88 mL bladder capacity was less than average, the patient felt that she was at capacity at 182 mL and voided 177 mL. Findings consistent with Sensor urgency, detrusor overactivity was noted. No objective leakage associated with cough or valsalva. EMG- Appropriate changes in the waveforms were noted through out the study. Discussed treatment options to include behavioral modification, pelvic floor PT, anti cholinergics, alternative therapies include bladder Botox injection and InterStim. She will cont Myrbetriq 50 mg and reassess. Review of chart: 09/27/23--Lidia is a 78 year old female who is here with her daughter. Argentine interpretor utilized. She is currently on Myrbetriq 50 mg and triamp cream and estrace cream, states medications have helped a little, leaks associated with urge and coughing also. pelvic exam mild relaxation vaginal wall. Discussed behaviourial modification, pelvic floor PT, further evaluation -sched urod. [facility] Medical History Osteoporosis Multiple food allergies Prediabetes Chronic constipation Essential hypertension Surgical History History of colonoscopy History of partial colectomy History of cholecystectomy History of cataract surgery H/O section History of hysterectomy History of hemorrhoidectomy (~1993) Family History Father No problems noted. Mother No problems noted. Social History Patient Tobacco Use Status: Never used Tobacco Review of Systems Const All systems reviewed & are unremarkable except as noted in HPI and below Reports no additional complaints Eyes Reports no additional complaints ENT Reports no additional complaints Card Reports no additional complaints Resp Reports no additional complaints GI Reports no additional complaints Reports as per HPI Musc Reports no additional complaints Skin/Breast Reports system reviewed and no additional complaints, except as documented Neuro Reports no additional complaints Psych Reports no additional complaints Endo Reports no additional complaints Raymond/Lymph Reports no additional complaints Aller/Immun Reports no additional complaints Office Procedures Urodynamic Studies Consent Discussed risk and benefit or proposed procedure with the patient. Information consent for procedure given to the patient. Discussed technical aspects, risks, benefits and alternatives in full. Addressed all of the patient's questions and concerns regarding the procedure. The patient demonstrated knowledge and understanding. They wish to proceed with this procedure. Preparation The patient was prepped in the usual manner. A drywall finisher foreman was present and in the room. Genitalia was prepped with betadine solution in a sterile manner. Procedure Complex Uroflow Complex uroflow performed by: Ai Mercedes Maximum urinary flow rate (mL/second): 4.9 Voiding time (seconds): 6.6 Voided volume (mL): 25 mL Residual urine (mL): 0 Cystometrogram First sensation at (mL): 79 mL Urgency (mL): 82 mL Strong desire to void occured at (mL): 182 mL Maximum fill (mL): 182 mL Voided with max detrussor pressure of (cm H2O): 40 Maximum flow rate (mL/second): 8.1 mL/s Voided Volume (mL): 177 29974-Vdcvxxhpqhuwkr w/ [employer] INSTALLER 65885-Utsstdj-Urbkvturypmw First 88388-Hbkh/Urinary Muscle Study 90552-Iqwsi-Xmltzrtmc Pressure Test Procedure code (CPT) selection complete Office Meds nitrofurantoin monohydrate/macrocrystals 100 mg capsule Performing Provider: Ai Mercedes MD [facility] Administered by: Eduardo Deutsch LPN on 11/24/23 08:34 Dose Route Admin Location Dispensed Lot Number Expiration Date NDC Queen Producer 100 mg PO 1 cap Assessment & Plan Assessment & Plan (1) 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 She will cont Myrbetriq 50 mg and reassess. Orders: Orders AMB Urodynamics Studies 11/24/23 N39.41 - Urge incontinence, N81.89 - Other female genital prolapse Medications: New mirabegron ER (Myrbetriq) 50 mg PO BEDTIME 30 tabs 2RF Patient Instructions: The patient had an opportunity to ask questions regarding treatment plan. The patient expressed understanding and agreement with the above treatment plan. The patient is aware they should contact our office by phone for worsening of their current condition or the appearance of new symptoms. Compliance is encouraged with any medications and followup testing that is ordered. It is a privilege to be allowed the opportunity to participate in the urologic care of your patient. If you have any questions or concerns regarding treatment for the above conditions please do not hesitate to contact me. The office telephone contact is [phone]. This note is constructed in part using voice recognition software. While every effort has been made to ensure accuracy director ehs errors may have been included. Yours sincerely, Ai Mercedes MD Coding Level of Care Code Procedure Only Diagnoses Detrusor overactivity N32.81 Urinary urgency R39.15 CPT Codes Urodynamic Studies - CPT: 90072-Trdkzsngynilgd w/ [employer]OR INSTALLER ([id number]) Urodynamic Studies - CPT: 48953-Hjemlhv-Arczgkalltcw First ([id number]) Urodynamic Studies - CPT: 52472-Akiv/Urinary Muscle Study ([id number]) Urodynamic Studies - CPT: 33192-Nkecz-Adnzknqil Pressure Test ([id number])
== END 2023-11-24 09:38 | disposition home or self-care (01) ==
PROVIDERS: PCP Nurse Practitioner Primary Care; Visit Provider Urology
DX: N39.41 Urge incontinence (principal); N81.89 Other female genital prolapse
CPT/HCPCS: 51728; 51741; 51784; 51797

== ENCOUNTER → 2023-11-24 07:51 | Outpatient (BNVA) | payer OTHER, SELFPAY | PROVIDERS: PCP Nurse Practitioner Primary Care; Visit Provider Urology | DX: N32.81 Overactive bladder (principal); N39.41 Urge incontinence; N81.89 Other female genital prolapse | CPT/HCPCS: 51728; 51741; 51784; 51797 ==

== ENCOUNTER 2023-12-08 13:27 | Outpatient (AMB) | payer OTHER, SELFPAY ==
--- NOTE | 2023-12-08 13:33 | MHC.OFFVIS ---
Vital Signs 12/08/23 13:57 Height 5 ft 1 in Weight 192 lb 3.889 oz BMI 36.3 BP 114/54 L Blood Pressure Location Lt brachial Position Sitting Pulse 92 Pulse Source Pulse Oximeter Pulse Oximetry (%) 94 Oxygen Delivery Method Room Air Intake Visit Reasons: Follow Up CIC Cologard Intake Note: Patient in office today in follow up of Cologuard and CIC. CC: Patient states that she did not received any of the medications prescribed by Christine Clark. Patient reports regular BMs because she is taking Metamucil every day. Quality Assurance Monitor Final Required: Yes Allergies No Known Allergies Allergy (Verified 01/01/24 15:18) HPI HPI Follow Up CIC Cologard: Details: Assessment & Plan (1) Chronic constipation: Code(s): K59.09 - Other constipation Category: Medical (2) Abdominal bloating: Code(s): R14.0 - Abdominal distension (gaseous) Category: Medical (3) Colon cancer screening: Comment: We will be doing Cologuard Code(s): Z12.11 - Encounter for screening for malignant neoplasm of colon Category: Medical Plan Cambodian #Vanessa White She is here today with multiple family members who are supportive Patient has been lost follow-up since 2021; she says that she lost her number and was not sure where to call for GI follow-up. I made her she had multiple copies of my business card. She has been out of the Amitiza since she has been lost to follow up since 07/2021 - but when she had it the effect was wonderful. She is very concerned that the continued CIC will trigger her hemorrhoids, which required surgery in the past. She is having a lot of gas and bloating. This would likely be r/t the CIC. Apparently, she was telling her PCP about her sx and they were telling her to just take the medication, however, she was not receiving the medicine as it likely needed a PA. She thinks she is due for a colonoscopy, her last being in [place] about 10 years ago. She has never had polyps and there is no known FHX of crc or polyps. She watches the Cologuard video in Cambodian and agrees that this would be a good screening option for her. ROV 6 weeks Medications: New lubiprostone (Amitiza) 8 mcg PO BID 60 caps 6RF K59.09 - Other constipation lubiprostone (Amitiza) 8 mcg PO BID 60 caps 6RF K59.09 - Other constipation TODAY'S VISIT Cambodian #[id number] Initial Cologuard sample could not be processed. We will attempt to ship her another COloguard. [place]. she never received the Amitiza, but she is taking otc metamucil with good results. ROV after holidays in January [facility] Medical History Osteoporosis Multiple food allergies Prediabetes Chronic constipation Essential hypertension Surgical History History of colonoscopy History of partial colectomy History of cholecystectomy History of cataract surgery H/O section History of hysterectomy History of hemorrhoidectomy (~1993) Family History Father No problems noted. Mother No problems noted. Social History Patient Tobacco Use Status: Never used Tobacco Review of Systems Const Denies fatigue, Denies fever(s), Denies night sweats, Denies poor appetite and Denies weight loss Eyes Details: glasses Reports requires corrective lenses ENT Reports Normal hearing present, Denies dental pain, Denies dysphagia, Denies hearing loss, Denies mouth pain, Denies odynophagia, Denies throat swelling, Denies tongue swelling and Reports other (Dentition adequate) Card Reports no additional complaints Resp Reports no additional complaints GI Details: Denies abdominal pain, Denies melena, Denies bloating, Reports hematochezia, Reports constipation, Denies GI cramping, Denies dysphagia, Denies excessive flatus, Denies early satiety, Denies heartburn, Denies diarrhea, Denies nausea, Denies odynophagia, Denies vomiting and Denies hematemesis Skin/Breast Denies pruritus, Denies lesions, Denies rash and Denies jaundice Neuro Reports Normal hearing present and Denies Abnormal speech present Endo Denies fatigue Aller/Immun Denies throat swelling and Denies tongue swelling Physical Exam Vital Signs: Last Vital Signs Pulse 92 12/08/23 13:57 BP 114/54 L 12/08/23 13:57 Pulse Ox 94 12/08/23 13:57 Oxygen Delivery Method Room Air 12/08/23 13:57 BMI result Body Mass Index 36.3 Const General: cooperative, no acute distress, well developed and well groomed Nutritional Appearance: well nourished and obese Orientation/consciousness: oriented to person, oriented to place and oriented to time Limitations: language barrier HEENT Head: Yes normocephalic and Yes atraumatic Eyes General: appearance normal, both eyes and all related structures Pupils: Equal, round and reactive pupils present Neck Neck: Yes normal visual inspection and Yes no lymphadenopathy Thyroid: Thyroid normal Resp Effort & Inspection: normal respiratory effort and able to speak in complete sentences Auscultation: clear to auscultation bilaterally Cardio Rate: regular rate Rhythm: regular rhythm Heart sounds: Normal, physiologic split S2 sound present Peripheral pulses: radial pulses present and posterior tibial pulses present GI Inspection: No distended, No Abdominal panniculus present and Yes obesity Palpation (GI): Soft to palpation, nontender, no guarding, not rigid and No hepatosplenomegaly present Percussion: Yes normal to percussion Auscultation: normal bowel sounds Rectal Exam - Female: deferred Skin General skin exam: no rashes or lesions noted, turgor normal, skin not dry, no jaundice, No spider nevi and no striae Rashes: no rashes Nails: normal Neuro General: oriented to person, oriented to place and oriented to time Cranial nerves: Yes Equal, round and reactive pupils present and Yes Normal hearing present Speech: No Abnormal speech present Extrem General: Yes normal to inspection, No clubbing, No cyanosis and No edema Psych Appearance: grossly normal and well kempt Mental Status: mental status grossly normal Speech and movement: Normal speech and movement present Affect: normal affect Attitude: cooperative Thought process: Circumstantial thought process present and not confabulating Thought content: Normal thought content present Insight: Limited insight present (Psych) Judgement: Limited judgement present (Psych) Assessment & Plan Assessment & Plan (1) Chronic constipation: Code(s): K59.09 - Other constipation Category: Medical (2) Colon cancer screening: Comment: We will be doing Cologuard Code(s): Z12.11 - Encounter for screening for malignant neoplasm of colon Category: Medical (3) Abdominal bloating: Code(s): R14.0 - Abdominal distension (gaseous) Category: Medical Plan Cambodian #[id number] Initial Cologuard sample could not be processed. We will attempt to ship her another COloguard. [place] and [place]. she never received the Amitiza, but she is taking otc metamucil with good results. ROV after holidays in January Coding Level of Care Code Est Pt Level 3 (95679) Diagnoses Chronic constipation K59.09 Colon cancer screening Z12.11 Abdominal bloating R14.0
[2023-12-08 13:57] VITALS: BP 114/54; PULSE 92; O2SAT 94; BMI 36.3
== END 2023-12-08 14:48 | disposition home or self-care (01) ==
LOC: HO.HGI 13:27
PROVIDERS: PCP Nurse Practitioner Primary Care; Visit Provider Nurse Practitioner
DX: K59.09 Other constipation (principal); R14.0 Abdominal distension (gaseous)
CPT/HCPCS: 99213

== ENCOUNTER → 2023-12-08 13:27 | Outpatient (BNVA) | payer OTHER, SELFPAY | PROVIDERS: PCP Nurse Practitioner Primary Care; Visit Provider Nurse Practitioner | DX: K59.09 Other constipation (principal); R14.0 Abdominal distension (gaseous) | CPT/HCPCS: 99212 ==

== ENCOUNTER 2024-01-01 15:16 | Outpatient (AMB) | payer OTHER, SELFPAY ==
--- NOTE | 2024-01-01 12:52 | A.OFFVIS_ITS ---
Intake Visit Reasons: 6Weeek follow up meds Intake Note: Patient is present for 6W F/U MEDS Urology Medication:MYRBETRIQ Antibiotic Allergy:NONE Blood Thinner:NONE Home Visitor Required: No Allergies No Known Allergies Allergy (Verified 01/01/24 15:18) HPI Comments Details: 01/01/24-- Lidia was initially evaluated 09/27/23- Status post urodynamics on 11/24/23--findings consistent with Findings consistent with Sensor urgency, detrusor overactivity was noted. No objective leakage associated with cough or valsalva. Failed Myrbetriq, Gemtesa ordered. [facility] Medical History Osteoporosis Multiple food allergies Prediabetes Chronic constipation Essential hypertension Surgical History History of colonoscopy History of partial colectomy History of cholecystectomy History of cataract surgery H/O section History of hysterectomy History of hemorrhoidectomy (~1993) Family History Father No problems noted. Mother No problems noted. Social History Patient Tobacco Use Status: Never used Tobacco Review of Systems Const All systems reviewed & are unremarkable except as noted in HPI and below Reports no additional complaints Eyes Reports no additional complaints ENT Reports no additional complaints Card Reports no additional complaints Resp Reports no additional complaints GI Reports no additional complaints Reports as per HPI Musc Reports no additional complaints Skin/Breast Reports system reviewed and no additional complaints, except as documented Neuro Reports no additional complaints Psych Reports no additional complaints Endo Reports no additional complaints Raymond/Lymph Reports no additional complaints Aller/Immun Reports no additional complaints Assessment & Plan Assessment & Plan (1) Detrusor overactivity: Code(s): 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
== END 2024-01-01 16:01 | disposition home or self-care (01) ==
LOC: HO.HUSH 15:16
PROVIDERS: PCP Nurse Practitioner Primary Care; Visit Provider Urology
DX: N32.81 Overactive bladder (principal); R39.15 Urgency of urination
CPT/HCPCS: 99214

== ENCOUNTER → 2024-01-01 15:16 | Outpatient (BNVA) | payer OTHER, SELFPAY | PROVIDERS: PCP Nurse Practitioner Primary Care; Visit Provider Urology | DX: N32.81 Overactive bladder (principal); R39.15 Urgency of urination | CPT/HCPCS: 99212 ==

== ENCOUNTER 2024-04-19 07:45 | Outpatient (AMB) | payer OTHER, SELFPAY ==
--- OUTSIDE RECORDS SUMMARY | 2024-04-19 07:46 | XMS_ITS | Encounter Summary ---
Author Organization [employer] Address [address] [place] [address] Care Team Providers Care Cutter [employer] Rolls Name Role Phone Alka Naidu Primary Care Provider [phone] Reason for Visit * Reason Comments Med Refill Encounter Details Date Type Department Care Team (Late st Contact Info) Description 10/30/2022 Refill [facility] MED[facility] [address] [place] [address] Greg Hawkins MD [address] [place], [place] [id number] Rash Social History Tobacco Use Types Packs/Day Years Used Date Smoking Tobacco: Never Smokeless Tobacco: Never Alcohol Use Standard Drinks/Week Comments Never 0 (1 standard drink = 0.6 oz pur e alcohol) Comments Unknown Sex and Gender Information Value Date Recorded Sex Assigned at Female 12/06/2021 10:39 AM EDT Legal Sex Female 10:39 AM EDT Gender Identity Female 12/06/2021 10:39 AM EDT Sexual Orientation Choose not to disclose 2021 10:39 AM EDT documented as of this encounter Plan of Treatment Not on file documented as of this encounter Visit Diagnoses Diagnosis Rash Rash and other nonspecific skin eruption documented in this encounter Care Teams [employer] Rolls Relationship Specialty Start Date End Date Alka Naidu ANP [address] [place] [address] PCP - General Family Medicine 01/19/21 documented as of this encounter
--- OUTSIDE RECORDS SUMMARY | 2024-04-19 07:46 | XMS_ITS | Encounter Summary ---
Author Organization [employer] Address [address] [place] [address] Care Team Providers Care Office Support Clerk Name Role Phone Alka Naidu Primary Care Provider [phone] Reason for Visit * Reason Comments Med Change Request Encounter Details Date Type Department Care Team ([facility] st Contact Info) Description 11/24/2022 Refill [facility] MED[facility]INE [address] [place] [address] Alka Naidu ANP [address] [place] [address] Rash Social History Tobacco Use Types Packs/Day [...] AM EDT documented as of this encounter Miscellaneous Notes * Telephone Encounter - Melita Nails RN - 11/28/2022 9:56 AM EDT Telephone call placed to pt regarding below message. Phone states, not accepting calls at this time , no option for v/m. Hi - please confirm w/ pt that she needs this med. Was temporary for rash and itching. documented in this encounter Plan of Treatment Not on file documented as of this encounter Visit Diagnoses Diagnosis Rash Rash and other nonspecific skin eruption documented in this encounter Care Teams Office Support Clerk Relationship Specialty Start Date End Date Alka Naidu ANP [address] [place] [address] PCP - General Family Medicine 01/19/21 documented as of this encounter
--- OUTSIDE RECORDS SUMMARY | 2024-04-19 07:47 | XMS_ITS ---
Author Name Troy LEE Yari Angelito Qiu Address [address] [place] [address] Phone [phone] [facility] Care Team Providers Care Logistics Intern Name Role Phone Sarai Simmons Unavailable [phone] AUGUSTUS JACKMAN Unavailable [phone] Reason for Referral Not Available Allergies, adverse reactions, alerts No known allergies History of medication use Medication Class Instructions Start Date End Date Estradiol 0.1 mg/GM Crm INSERT 1 GRAM VA GINALLY EVERY DAY AT BEDTIME FOR FOURTEEN DAYS THEN DECREASE TO 1 GRAM TWICE A WEEK 2022-12-26 No Data Available Myrbetriq 25 mg Tab ER 24hr TAKE 1 TABLE T BY MOUTH EVERY DAY 2022-12-26 No Data Available NIFEdipine ER Osmotic Releas e 30 mg Tab ER 24hr TAKE 1 TABLET BY MOUTH EVERY DAY IN THE MORNING 2022-04-08 No Data Available Triamcinolone Acetonide 0.1 % Crm APPLY TOPICALLY TWICE DAILY IN THE MORNING AND AT BEDTIME NEEDED FOR RASH 2022-08-11 No Data Available methylPREDNISolone 4 mg Tab Therapy Pack TAKE 6 TABLETS ON DAY 1 DIRECTED ON PACKAGE AND DECREASE BY 1 TAB EACH DAY FOR A TOTAL OF 6 DAYS 2023-04-13 2023-05-05 ZyrTEC Allergy 10 mg Cap 1 tablet QD PO PRN 2023-05-05 No Data Available Tylenol Extra Strength 500 m g Tab 2 tablets orally one time TID PRN pain 2023-05-05 No Data Available Problem List Problem Status Onset Date Resolved Date Mixed stress and urge urinary incontinence Active 2023-05-05 N/A Essential hypertensionPremature atrial contraction Act brennen 2023-05-05 N/A [facility] Active 2023-05-05 N/A Chronic bilateral low back p ain with sciaticaImpaired gait and mobility Active 2023-05-05 N/A Morbid obesity due to excess calories Active 05-09-28 N/A Encounters Encounters Type Facility Date of Service Diagnosis/Co mplaint New patient,40-59min; chronic exacerbation, 2 stable chronic or 1 acute illness add add modifier 95 for video (do not use for phone, instead use [id number]) [facility] [place] Mixed incontinenceEssential (primary) hypertensionAtrial premature depolarizationMorbid (severe) obesity due to excess caloriesOther problems related to medical facilities and other health careOther abnormalities of gait and mobilityLumbago with sciatica, unspecified sideOther chronic pain New patient,40-59min; chronic exacerbation, 2 stable chronic or 1 acute illness add add modifier 95 for video (do not use for phone, instead use [id number]) [facility] [place] New patient,40-59min; chronic exacerbation, 2 stable chronic or 1 acute illness add add modifier 95 for video (do not use for phone, instead use 28714-29) [facility] [place] New patient,40-59min; chronic exacerbation, 2 stable chronic or 1 acute illness add add modifier 95 for video (do not use for phone, instead use 71723-20) [facility] [place] New patient,40-59min; chronic exacerbation, 2 stable chronic or 1 acute illness add add modifier 95 for video (do not use for phone, instead use 98169-03) [facility] [place] New patient,40-59min; chronic exacerbation, 2 stable chronic or 1 acute illness add add modifier 95 for video (do not use for phone, instead use 53422-79) [facility] [place] New patient,40-59min; chronic exacerbation, 2 stable chronic or 1 acute illness add add modifier 95 for video (do not use for phone, instead use 21247-49) [facility] [place] New patient,40-59min; chronic exacerbation, 2 stable chronic or 1 acute illness add add modifier 95 for video (do not use for phone, instead use 40735-07) [facility] [place] New patient,40-59min; chronic exacerbation, 2 stable chronic or 1 acute illness add add modifier 95 for video (do not use for phone, instead use 73429-38) [facility] [place] New patient,40-59min; chronic exacerbation, 2 stable chronic or 1 acute illness add add modifier 95 for video (do not use for phone, instead use 82170-25) [facility] [place]23 Vital Signs Date of Collection Vitals 2023-05-05 05:30:31 Height - 154.94 cmWe ight - 86.18 kgBody Mass Index (BMI) - 35.9 kg/m2BP Diastolic - 70.0 mm[Hg]BP Systolic - 120.0 mm[Hg] Social History Social History Social History Observation Description Effec tive Time Current Smoking Status Never smoker 2024-04-06 4 Sex Female Gender identity Woman History of Procedures Procedures Service Procedure code Service date Servicing provider Phone# New patient,40-59min; chronic exacerbation, 2 stable chronic or 1 acute illness add add modifier 95 for video (do not use for phone, instead use [id number]) [id number] 2023-05-05 No Data Available No Data Availa ble Pain Assessment - NO pain present (1126F) 1126F 2023-05-05 No Data Available No Data A vailable Medication List Documented (1159F) 1159F 2023-05-05 No Data Available No Data Leonarda ilable Medication Review by prescribing provider or pharmacist documented (1160F) 1160F 2023-05-05 No Data Available No Data Leonarda ilable Advance Care Directive Advance care planning discussion documented in the medical record (1158F) 1158F 2023-05-05 No Data Available No Data Availa ble BMI obtained (3008F) 3008F 2023-05-05 No Data Availab le No Data Available Advance care planning discussed and documented ? advance care plan or surrogate decision-maker was documented in the medical record. (1123F) 1123F 2023-05-05 No Data Available No Data Availa ble SBP < 130 (3074F) 3074F 2023-05-05 No Data Available No Data Available DBP <80 (3078F) 3078F 2023-05-05 No Data Available No Data Available Functional Status Assessed (1170F) 1170F 2023-05-05 No Data Available No Data Avail able Functional Status Functional Category Effective Dates Cognition Status: Oriented to Person, Pl nolvia and Time 2023-05-05 ADL: Bathing Needs Assistanc e , Dressing Needs Assistance , Eating Independent , Ambulation Needs Assistance , Transferring Independent and Toileting Independent 2023-05-05 Falls in last 6 Months: No 2023-05-05 IADL: Medication Needs Lazaro tance , Meal Prep Needs Assistance , Shopping Needs Assistance , Driving or Public Transport Needs Assistance , Housework Needs Assistance and Finances Needs Assistance 2023-05-05 Reports using her husbands rollator. 05-09-28 Mental Status Status Date AOx3 2023-05-05 Assessments Date of Service Assessments 2023-05-05 05:30:31 Other problems relat ed to medical facilities and other health careMixed stress and urge urinary incontinenceEssential hypertensionPremature atrial contractionChronic bilateral low back pain with sciaticaImpaired gait and mobilityMorbid obesity due to excess calories Plan of Care Date of Service Plans 2023-05-05 05:30:31 Pain Assessment - NO pain documented (1126F)Medication Review by prescribing provider or pharmacist documented (1160F)Medication List Documented (1159F)Functional Status Assessed (1170F)Advance Care Directive Advance care planning discussion documented in the medical record (1158F)BMI obtained (3008F)SBP < 130 (3074F)DBP <80 (3078F)Televideo new patient,40-59min; chronic exacerbation, 2 stable chronic or 1 acute illness add modifier 95Advance care planning discussed and documented ? advance care plan or surrogate decision-maker was documented in the medical record. (1123F)Continue to see PCP. Follow-up with [facility] as needed for any acute or disease education needs that may arise. Contingency Plan Hypertensive Episode What specific symptoms does this person have that is likely to take them back to the ER?Member to call for the following symptoms: Blood pressure >180/100/ Heart rate >110/ NauseaPlanned intervention: Eat lower sodium foods/ Take medication every single day / evaluate for cause of of high BPStableMyrbetriqMonitor for changes in urine output and continue f/u care with PCP and urology.StableNifedipineMonitor BP routinely, low salt diet, exercise as tolerable, monitor for acute cardiac s/sx (eg. palpitations) and continue f/u care with PCP.StableTylenol Rollator requestROM exercises, continue taking medication and f/u care with PCP.StableBMI: 35.90Dietary and lifestyle interventions and continue with PCP. Goals Date Goal 2023-05-05 Remember to exercise as tolerable, monitor BP routinely, and f/u with urology as scheduled. 2023-05-05 Contact us if develo ping palpitations, hypertensive s/sx, worsening urinary incontinence, falls, or worsening pain. 2023-05-05 Continue taking medi cations as prescribed and f/u care and monitoring with PCP every 3-6 months. Health Concerns Date Concern 2023-05-05 Visit completed by a udio and video. Patient/Guardian agreed to visit via telehealth. Introductory visit with Blayne to establish care. Today, patient has chief complaint of: establishing care.Reviewed Allergies, Medications, Active Medical conditions, past medical/surgical history, Social history. 2023-05-05 Most recent hospital stay(s) or ER visit(s) and precipitating factors: Denies in the last month. 2023-05-05 ACP: unknown. HCP: viridiana gutierrez - Yamileth Dillard Cruz (Daughter). Full code. 2023-05-05 Informed verbal cons ent was obtained from this patient to communicate and provide care using virtual and other telecommunications tools. This patient has been explained the risks, if any, related to the encounter. I explained that care provided through video or audio communication cannot replace the need for physical examination or an in-person visit for some disorders or urgent problems.
--- OUTSIDE RECORDS SUMMARY | 2024-04-19 07:47 | XMS_ITS | Clinical Summary ---
Author Organization [employer] Address [address] [place] [address] Care Team Providers Care Fundraising Assistant Name Role Phone Alka Naidu CORRINE Primary Care Provider [phone] Allergies No known active allergies Medications linaCLOtide (Linzess) 290 MCG capsule Take 1 capsule by mouth. 30 min prior to a meal Active cetirizine (ZyrTEC) 10 MG tabletIndications :Non-seasonal allergic rhinitis due to other allergic trigger Take 1 tablet (10 mg) by mouth in the morning. 30 tablet 2 3 Active triamcinolone (Kenalog) 0.1 % creamIndications: Rash Apply topically if needed in the morning and at bedtime for rash. 80 g 2 3 Active hydrOXYzine pamoate (Vistaril) 25 MG capsuleIndication s:Rash TAKE 1 CAPSULE AT BEDTIME FOR ITCHING 30 capsule 3 Active NIFEdipine CC (Adalat CC) 30 MG 24 hr tabletIndications :Benign essential hypertension TAKE 1 TABLET BY MOUTH EVERY DAY 90 tablet 1 4 Active estradiol (Vagifem) 10 MCG tablet vaginal tabletIndications :Vaginal atrophy INSERT 1 TABLET VAGINALLY TWICE A WEEK 24 tablet 5 Active Active Problems Problem Noted Date Diagnosed Date Elevated hemoglobin A1c measurement 07/12/2023 Overview (07/12/2023): via [facility] home testing, 5.8% 4/30/24 Mixed stress and urge urinary incontinence 08/11 Chronic bilateral low back pain with sciatica Ventricular premature beats 10/13/2021 Benign essential hypertension 10/13/2021 Premature atrial contraction 10/13/2021 Atrophic vaginitis 10/31/2011 Osteopenia 10/31/2011 Encounters Date Type Department Care Team Description 02/29/2024 Refill [facility] [address] [place] [address] Alka Naidu ANP Vaginal atrophy 01/22/2024 Refill [facility] [address] [place] [address] Alka Naidu ANP Benign essential hypertension from Last 3 Months Immunizations Name Administration Dates Next Due Influenza, Unspecified 11/16/2011 Pneumococcal Conjugate PCV 20 06/01/2022(Deferre d: Other - Out of stock) Tdap 01/14/2021 Social History Tobacco Use Types Packs/Day Years Used Date Smoking Tobacco: Never Passive Smoke Exposure: Never Smokeless Tobacco: Never Tobacco Cessation:Counseling Given: Not Answered Alcohol Use Standard Drinks/Week Comments Never 0 (1 standard drink = 0.6 oz pur e alcohol) Depression Answer Date Recorded Patient Health Questionnaire-9 Score 5 06/30/2023 Patient Health Questionnaire-9 Score 5 06/30/2023 Last PHQ-9: Questionnaire Data Not on file 0 06/30/2023 Housing Stability Answer Date Recorded What is your housing situation today? I have karlo evans 06/21/[address] you li ve. Do you have problems with any of the following? None of the above 06/21/2023 Food Insecurity Answer Date Recorded Within the past 12 months, y ou worried that your food would run out before you got money to buy more: Never True 06/21/2023 Within the past 12 months,th e food you bought just didn't last and you didn't have enough money to get more: Never True Transportation Answer Date Recorded In the past 12 months, has l ack of transportation kept you from medical appts, meetings, work or from getting things needed for daily living? No 06/21/2023 Utilities Answer Date Recorded In the past 12 months, has t he electric, gas, oil or water company threatened to shut off services in your home? No 06/21/2023 Depression Answer Date Recorded Patient Health Questionnaire-2 Score 0 06/30/2023 Comments Unknown Sex and Gender Information Value Date Recorded Sex Assigned at Female 12/06/2021 10:39 AM EDT Legal Sex Female 10:39 AM EDT Gender Identity Female 12/06/2021 10:39 AM EDT Sexual Orientation Choose not to disclose 2021 10:39 AM EDT Last Filed Vital Signs Vital Sign Reading Time Taken Comments Blood Pressure 120/64 06/30/2023 8:57 AM EDT Pulse 72 06/30/2023 8:57 AM EDT Temperature 36.2 ??C (97.1 ??F) 06/30/2023 8:57 AM ED T Respiratory Rate 20 06/30/2023 8:57 AM EDT Oxygen Saturation 96% 06/30/2023 8:57 AM EDT Inhaled Oxygen Concentration - - Weight 84.9 kg (187 lb 3.2 oz) 06/30/2023 8:57 A M EDT Height 154.9 cm (5' 1 ) 06/30/2023 8:57 AM EDT Body Mass Index 35.37 06/30/2023 8:57 AM EDT Plan of Treatment Health Maintenance Due Date Last Done Comments Lipid Panel 1945 Alcohol/Substance Use Screening 1957 Hepatitis C Screening 1963 Hepatitis A Vaccines (1 of 2 - Risk 2-dose series) 02/14/1964 Pneumococcal Vaccine: 50+ Years (1 of 1 - PCV) 1995 Zoster Vaccines (1 of 2) 1995 Hepatitis B Vaccines (1 of 3 - Risk 3-dose series) 2005 RSV Patients and Patients Aged 60 years or older (1 - 1-dose 75+ series) 02/14/2020 COVID-19 Vaccine ( - 2023-2 5 season) 2023 Influenza Vaccine (#1) 2023 11/16/2011 SDOH Screening 06/20/2024 06/21/2023 Depression Screening 06/29/2024 06/30/2023, 06/30/2023 Tobacco Screening 06/29/2024 06/30/2023 DTaP/Tdap/Td Vaccines (2 - T d or Tdap) 01/14/2031 01/14/2021 HIB Vaccines Aged Out No longer eligi ble based on patient's age to complete this topic HPV Vaccines Aged Out No longer eligi ble based on patient's age to complete this topic IPV Vaccines Aged Out No longer eligi ble based on patient's age to complete this topic Meningococcal Vaccine Aged Out No jeffry cholo eligible based on patient's age to complete this topic RSV under 20 months Aged Out No longe r eligible based on patient's age to complete this topic Rotavirus Vaccines Aged Out No longer eligible based on patient's age to complete this topic Insurance [facility] Member Subscriber Plan / Payer (Ef fective 2023-Present) Name:Lidia Muhammad Relation to Subscriber:Self Name:Lidia Muhammad Payer ID:Not on file Group ID:[id number] Type:Not on file Address: [address] [place] [address] [id number] [place] [id number] Care Teams Fundraising Assistant Relationship Specialty Start Date End Date Alka Naidu ANP [address] [place] [id number] PCP - General Family Medicine 01/19/21
--- NOTE | 2024-04-19 07:55 | MHC.OFFVIS ---
Intake Visit Reasons: 14w/med review(gemtesa) Intake Note: Patient Medications: Gemtesa Allergies to antibiotics: none Blood thinners: none Network Development Coordinator Required: Yes Allergies No Known Allergies Allergy (Verified 04/19/24 08:03) HPI Comments Details: 04/19/24--Roberta a 79-year-old female presenting with lower urinary tract symptoms, including urgency and urinary incontinence. She experiences urinary hesitancy, she states she needs to apply pressure on her bladder area for complete voiding. Her symptom history includes urinary leakage during activities such as laughter or coughing, with less frequent pad usage except for precautionary purposes on longer trips. A prescription for Mirabegron 25 mg was discontinued due to adverse effects such as augmented bladder pressure and urination difficulty. Previous evaluation with Urodynamics revealed sensory urgency and detrusor overactivity. Current management involves the use of daily vaginal estradiol, prescribed by her primary provider. Urinary Symptoms Review - Urinary frequency with initial incomplete voiding - Application of pressure to abdomen needed for complete bladder emptying - Leakage with sudden movements or laughter - Occasional use of pads on longer trips for protection - Discontinuation of Mirabegron 25 mg due to negative effects - Usage of vaginal estradiol once nightly - History of multiple vaginal deliveries Results - Tests and diagnostics: Urodynamic studies indicate sensory urgency and detrusor overactivity. Patient Instructions - Continue using vaginal estradiol as prescribed, nightly. - Monitor urinary symptoms and note any significant changes such as increased retention or leakage. - Consider wearing protective pads when traveling long distances. - Return to the clinic sooner if symptoms worsen or become concerning. - Plan for re-evaluation in one year unless otherwise needed. 01/01/24-- Lidia was initially evaluated 09/27/23- Status post urodynamics on 11/24/23--findings consistent with Findings consistent with Sensor urgency, detrusor overactivity was noted. No objective leakage associated with cough or valsalva. Failed Myrbetriq, Gemtesa ordered. [facility] Medical History Osteoporosis Multiple food allergies Prediabetes Chronic constipation Essential hypertension Surgical History History of colonoscopy History of partial colectomy History of cholecystectomy History of cataract surgery H/O section History of hysterectomy History of hemorrhoidectomy (~1993) Family History Father No problems noted. Mother No problems noted. Social History Patient Tobacco Use Status: Never used Tobacco Review of Systems Const All systems reviewed & are unremarkable except as noted in HPI and below Reports no additional complaints Eyes Reports no additional complaints ENT Reports no additional complaints Card Reports no additional complaints Resp Reports no additional complaints GI Reports no additional complaints Reports as per HPI Musc Reports no additional complaints Skin/Breast Reports system reviewed and no additional complaints, except as documented Neuro Reports no additional complaints Psych Reports no additional complaints Endo Reports no additional complaints Raymond/Lymph Reports no additional complaints Aller/Immun Reports no additional complaints Assessment & Plan Assessment & Plan (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 We have ruled out anticholinergic options for now due to retention concerns. Symptom monitoring remains crucial, with pelvic floor therapy as a potential complementary intervention if desired by the patient. Re-evaluation is planned for one year unless symptomatic changes dictate earlier intervention. Discussion Notes I discussed with the patient the causes and management options for her urinary incontinence. We reviewed the use of vaginal estrogen, and alternative pharmacologic treatments, highlighting the issues with anticholinergic medications in her case. We explored the benefits of pelvic floor exercises as a non-pharmacologic approach. The patient was informed of the plan to continue monitoring and to consider symptom-based interventions, with a follow-up scheduled in one year or earlier if needed. She was agreeable to the management plan. Patient Instructions: The patient had an opportunity to ask questions regarding treatment plan. The patient expressed understanding and agreement with the above treatment plan. The patient is aware they should contact our office by phone for worsening of their current condition or the appearance of new symptoms. Compliance is encouraged with any medications and followup testing that is ordered. It is a privilege to be allowed the opportunity to participate in the urologic care of your patient. If you have any questions or concerns regarding treatment for the above conditions please do not hesitate to contact me. The office telephone contact is [phone]. This note is constructed in part using voice recognition software. While every effort has been made to ensure accuracy vice president mission integration errors may have been included. Yours sincerely, Ai Mercedes MD Scribe Plan - Not visible on output: Patient was informed and verbally consented to the use of an ambient scribe for clinic note documentation during this visit. Coding Level of Care Code Est Pt Level 3 (05401) Complex EM visit Add On G2211 Diagnoses Detrusor overactivity N32.81 Urinary urgency R39.15 Urinary hesitancy R39.11 Urinary incontinence R32
== END 2024-04-19 08:52 | disposition home or self-care (01) ==
LOC: HO.HUSH 07:45
PROVIDERS: PCP Nurse Practitioner Primary Care; Visit Provider Urology
DX: N32.81 Overactive bladder (principal); R39.15 Urgency of urination; R39.11 Hesitancy of micturition; R32 Unspecified urinary incontinence
CPT/HCPCS: 99213; G2211

== ENCOUNTER → 2024-04-19 07:45 | Outpatient (BNVA) | payer OTHER, SELFPAY | PROVIDERS: PCP Nurse Practitioner Primary Care; Visit Provider Urology | DX: R32 Unspecified urinary incontinence (principal); R39.15 Urgency of urination; N32.81 Overactive bladder; R39.11 Hesitancy of micturition | CPT/HCPCS: 99212 ==

== ENCOUNTER 2024-05-09 15:24 | Outpatient (AMB) | payer OTHER, SELFPAY ==
--- NOTE | 2024-05-09 15:27 | MHC.OFFVIS ---
Vital Signs 05/09/24 15:28 Height 5 ft 1 in Weight 191 lb 12.835 oz BMI 36.2 BP 123/60 Blood Pressure Location Lt brachial Position Sitting Pulse 96 Intake Visit Reasons: Follow up constipation Intake Note: Patient in office today in follow up of Cologuard. CC: Patient reports doing well with medication. Denies having any new GI symptoms. Palliative Care Specialist Required: Yes Palliative Care Specialist Services: Palliative Care Specialist Present Accompanied by: Self / Same As Patient Allergies No Known Allergies Allergy (Verified 05/09/24 15:37) HPI HPI Follow up constipation: Details: Assessment & Plan (1) Chronic constipation: Code(s): K59.09 - Other constipation Category: Medical (2) Colon cancer screening: Comment: We will be doing Cologuard Code(s): Z12.11 - Encounter for screening for malignant neoplasm of colon Category: Medical (3) Abdominal bloating: Code(s): R14.0 - Abdominal distension (gaseous) Category: Medical Plan [place] #[id number] Initial Cologuard sample could not be processed. We will attempt to ship her another COloguard. [place]. she never received the Amitiza, but she is taking otc metamucil with good results. ROV after holidays in January TODAY'S VISIT [place] #V Live Initial Cologuard sample could not be processed, [facility] second sample 12/2023 was negative so we or her PCP can repeat this in 3 years. She asks for simethicone for bloating, I will send an RX and after this she prefers to have her PCP prescribe it. ROV prn. PFSH Medical History Osteoporosis Multiple food allergies Prediabetes Chronic constipation Essential hypertension Surgical History History of colonoscopy History of partial colectomy History of cholecystectomy History of cataract surgery H/O section History of hysterectomy History of hemorrhoidectomy (~1993) Family History Father No problems noted. Mother No problems noted. Social History Patient Tobacco Use Status: Never used Tobacco Review of Systems Const Denies fatigue, Denies fever(s), Denies night sweats, Denies poor appetite and Denies weight loss Eyes Details: glasses Reports requires corrective lenses ENT Reports Normal hearing present, Denies dental pain, Denies dysphagia, Denies hearing loss, Denies mouth pain, Denies odynophagia, Denies throat swelling, Denies tongue swelling and Reports other (Dentition adequate) Card Reports no additional complaints Resp Reports no additional complaints GI Details: Denies abdominal pain, Denies melena, Reports bloating, Denies hematochezia, Reports constipation, Denies GI cramping, Denies dysphagia, Denies excessive flatus, Denies early satiety, Denies heartburn, Denies diarrhea, Denies nausea, Denies odynophagia, Denies vomiting and Denies hematemesis Skin/Breast Denies pruritus, Denies lesions, Denies rash and Denies jaundice Neuro Reports Normal hearing present and Denies Abnormal speech present Endo Denies fatigue Aller/Immun Denies throat swelling and Denies tongue swelling Physical Exam Vital Signs: Last Vital Signs Pulse 96 05/09/24 15:28 BP 123/60 05/09/24 15:28 BMI result Body Mass Index 36.2 Const General: cooperative, no acute distress, well developed and well groomed Nutritional Appearance: well nourished and obese Orientation/consciousness: oriented to person, oriented to place and oriented to time Limitations: language barrier HEENT Head: Yes normocephalic and Yes atraumatic Eyes General: appearance normal, both eyes and all related structures Pupils: Equal, round and reactive pupils present Neck Neck: Yes normal visual inspection and Yes no lymphadenopathy Thyroid: Thyroid normal Resp Effort & Inspection: normal respiratory effort and able to speak in complete sentences Auscultation: clear to auscultation bilaterally Cardio Rate: regular rate Rhythm: regular rhythm Heart sounds: Normal, physiologic split S2 sound present Peripheral pulses: radial pulses present and posterior tibial pulses present GI Inspection: No distended, Yes Abdominal panniculus present and Yes obesity Palpation (GI): Soft to palpation, nontender, no guarding, not rigid and No hepatosplenomegaly present Percussion: Yes normal to percussion Auscultation: normal bowel sounds Rectal Exam - Female: deferred Skin General skin exam: no rashes or lesions noted, turgor normal, skin not dry, no jaundice, No spider nevi and no striae Rashes: no rashes Nails: normal Neuro General: oriented to person, oriented to place and oriented to time Cranial nerves: Yes Equal, round and reactive pupils present and Yes Normal hearing present Speech: No Abnormal speech present Extrem General: Yes normal to inspection, No clubbing, No cyanosis and No edema Psych Appearance: grossly normal and well kempt Mental Status: mental status grossly normal Speech and movement: Normal speech and movement present Affect: normal affect Attitude: cooperative Thought process: Normal thought process present and not confabulating Thought content: Normal thought content present Insight: Good insight present (Psych) Judgement: Good judgement present (Psych) Assessment & Plan Assessment & Plan (1) Chronic constipation: Code(s): K59.09 - Other constipation Category: Medical (2) Abdominal bloating: Code(s): R14.0 - Abdominal distension (gaseous) Category: Medical Plan [place] #V Live Initial Cologuard sample could not be processed, the second sample 12/2023 was negative so we or her PCP can repeat this in 3 years. She asks for simethicone for bloating, I will send an RX and after this she prefers to have her PCP prescribe it. ROV prn. Medications: New simethicone (Gas Relief (simethicone)) 125 mg PO BID-QID PRN 90 tabs 12RF abdominal distention R14.0 - Abdominal distension (gaseous) Coding Level of Care Code Est Pt Level 3 (45023) Diagnoses Chronic constipation K59.09 Abdominal bloating R14.0
[2024-05-09 15:28] VITALS: BP 123/60; PULSE 96; BMI 36.2
--- OUTSIDE RECORDS SUMMARY | 2024-05-09 16:47 | XMS_ITS | Encounter Summary ---
Author Organization [employer] Address [address] [place] [address] Care Team Providers Care Exterminator Termite Name Role Phone Alka Naidu Primary Care Provider [phone] Reason for Visit * Reason Comments Med Refill Encounter Details Date Type Department Care Team (Late st Contact Info) Description 10/30/2022 Refill [facility] [address] [place] [address] Greg Hawkins MD [address] [place], [place] [id number] Rash Social History Tobacco Use Types Packs/Day [...] eruption documented in this encounter Care Teams Exterminator Termite Relationship Specialty Start Date End Date Alka Naidu ANP [address] [place] [address] PCP - General Family Medicine 01/19/21 documented as of this encounter
--- OUTSIDE RECORDS SUMMARY | 2024-05-09 16:47 | XMS_ITS | Encounter Summary ---
Author Organization [employer] Address [address] [place] [address] Care Team Providers Care Ornamental Iron Worker Apprentice Name Role Phone Alka Naidu Primary Care Provider [phone] Reason for Visit * Reason Comments Med Change Request Encounter Details Date Type Department Care Team ([facility] st Contact Info) Description 11/24/2022 Refill [facility] [address] [place] [address] Alka Naidu ANP [address] [place] [address] Rash Social History Tobacco Use Types Packs/Day [...] eruption documented in this encounter Care Teams Ornamental Iron Worker Apprentice Relationship Specialty Start Date End Date Alka Naidu ANP [address] [place] [address] PCP - General Family Medicine 01/19/21 documented as of this encounter
--- OUTSIDE RECORDS SUMMARY | 2024-05-09 16:47 | XMS_ITS | Clinical Summary ---
Author Organization [employer] Address [address] [place] [address] Care Team Providers Care Records Manager Name Role Phone Alka Naidu CORRINE Primary Care Provider [phone] Allergies No known active allergies Medications linaCLOtide [...] hemoglobin A1c measurement 07/12/2023 Overview (07/12/2023): via [facility] home testing, 5.8% 4/30/24 Mixed stress and urge urinary incontinence 08/11 Chronic bilateral low back pain with sciatica Ventricular premature beats 10/13/2021 Benign essential hypertension 10/13/2021 Premature atrial contraction 10/13/2021 Atrophic vaginitis 10/31/2011 Osteopenia 10/31/2011 Encounters Date Type Department Care Team Description 02/29/2024 Refill [facility] [address] [place] [address] Alka Naidu ANP Vaginal atrophy from Last 3 Months Immunizations Name Administration [...] patient's age to complete this topic Insurance [facility] Member Subscriber Plan / Payer (Ef fective 2023-Present) Name:Lidia Muhammad Relation to Subscriber:Self Name:Lidia Muhammad Payer ID:Not on file Group ID:[id number] Type:Not on file Address: [address] [place] Care Teams Records Manager Relationship Specialty Start Date End Date Alka Naidu ANP [address] [place] [id number] PCP - General Family Medicine 01/19/21
--- OUTSIDE RECORDS SUMMARY | 2024-05-09 16:47 | XMS_ITS | Continuity of Care Document ---
Author Organization [facility] Address [address] [place] [address] Care Team Providers Care Court Supervisor Name Role Phone Miky Morales MD Unavailable Unavailable Allergies, Adverse Reactions, Alerts Substance Reaction Status Criticality No Known Allergies Active No Inform ation Medications Medication Instructions Dosage Effective Dates (start - stop) Status Comments CHOLECALCIFEROL (VITAMIN D3) 2,000UNIT CAPSULE take 1 tablet by oral route every day para huesos - Active ALENDRONATE 70 MG TABLET take 1 tablet by oral route every week in the morning, at least 30 minbefore first food, beverage, or medication of day - Active loratadine 10 mg tablet take 1 tablet by oral route every day 10 MG - Active Flonase Allergy Relief 50 mcg/actuation nasal spray,suspension inhale 2 spray by intranasal route every day in each nostril as needed for allergies 100 MCG - Active nifedipine ER 30 mg tablet,extended release take 1 tablet by oral route every day 30 MG - Active atorvastatin 10 mg tablet take 1 tablet by oral route every day for proteger alma rosa - Active benzonatate 100 mg capsule take 1 capsule by oral route 3 times every day 100 MG - Active Trintellix 5 mg tablet discontinue - psy ch rx'd, but it caused tachycardia - Active psych - Zaditor 0.025 % (0.035 %) eye drops instill 1 drop by ophthalmic route 2 times every day into affected eye(s) 1.00 drop - Active Miralax 17 gram/dose oral powder take (17G) by oral route every day mixed with 8 oz. water, juice, soda, coffee or tea - Active fluticasone 50 mcg/actuation nasal spray,suspension inhale 1 spray by intranasal route every day in each nostril for para alergia 50 MCG - Active acetaminophen 500 mg tablet take 2 tablet by oral route every 6 hours as needed 1000 MG - Active Procedures Procedure Date Screening For Depresion GLYCATED HEMOGLOBIN TEST ROUTINE VENIPUNCTURE BASIC METABOLIC PANEL LIPID PANEL PPPS, subseq visit OFFICE/OUTPATIENT VISIT, EST REAGENT STRIP/BLOOD GLUCOSE BASIC METABOLIC PANEL ROUTINE VENIPUNCTURE MICROALBUMIN, QUANTITATIVE OFFICE/OUTPATIENT VISIT, EST Screening For Depresion Admin pneumococcal vaccine PNEUMOCOCCAL VACCINE GLYCATED HEMOGLOBIN TEST ROUTINE VENIPUNCTURE ASSAY THYROID STIM HORMONE MICROALBUMIN, QUANTITATIVE LIPID PANEL COMPREHEN METABOLIC PANEL PPPS, initial visit OFFICE/OUTPATIENT VISIT, EST OFFICE/OUTPATIENT VISIT, EST OFFICE/OUTPATIENT VISIT, EST Denture Adjustment, < Six Months 2017 Mandibular Partial Denture, Resin Base J Denture, Wax Try-In Denture Partial, Final Impressions OFFICE/OUTPATIENT VISIT, EST Resin Based Composite One Surface, Poste rior Resin Based Composite Two Surfaces, Post erior Resin Based Composite Three Surfaces, Po sterior OFFICE/OUTPATIENT VISIT, EST Resin Based Composite One Surface, Poste rior OFFICE/OUTPATIENT VISIT, EST Resin Based Composite Three Surfaces, An terior Resin Based Composite Two Surfaces, Ante rior I REAGENT STRIP/BLOOD GLUCOSE OFFICE/OUTPATIENT VISIT, EST Prophylaxis Adult II Preventive Dental P rophyla Nutritional Counseling For Control Of De ntal Disea Oral Hygiene Instructions II Preventive Other Pre REAGENT STRIP/BLOOD GLUCOSE OFFICE/OUTPATIENT VISIT, EST Intraoral Complete Series Including Bite wings Comprehensive Oral Evaluation New Or Est ablished ASSAY THYROID STIM HORMONE ROUTINE VENIPUNCTURE GLYCATED HEMOGLOBIN TEST COMPLETE CBC W/AUTO DIFF WBC BASIC METABOLIC PANEL MICROALBUMIN, QUANTITATIVE OFFICE/OUTPATIENT VISIT, EST UNLISTED E&M SERVICE OFFICE/OUTPATIENT VISIT, EST OFFICE/OUTPATIENT VISIT, EST ADULT IMMUNIZATION ADMIN, 7 Fluzone High-dose OFFICE/OUTPATIENT VISIT, EST BASIC METABOLIC PANEL ROUTINE VENIPUNCTURE ELECTROCARDIOGRAM, COMPLETE OFFICE/OUTPATIENT VISIT, EST REAGENT STRIP/BLOOD GLUCOSE OFFICE/OUTPATIENT VISIT, EST ADULT IMMUNIZATION ADMIN, 6 PNEUMOCOCCAL VACC, 13 TA IM OFFICE/OUTPATIENT VISIT, EST UNLISTED E&M SERVICE OFFICE/OUTPATIENT VISIT, EST OFFICE/OUTPATIENT VISIT, EST URINALYSIS NONAUTO W/O SCOPE OFFICE/OUTPATIENT VISIT, EST URINE CULTURE/COLONY COUNT URINALYSIS, AUTO, W/O SCOPE DREW, DNA, AMP PROBE DETECT AGENT NOS, DNA, AMP KIDD VAG, DNA, QUANT OFFICE/OUTPATIENT VISIT, EST ROUTINE VENIPUNCTURE OFFICE/OUTPATIENT VISIT, EST OFFICE/OUTPATIENT VISIT, NEW UNLISTED E&M SERVICE Advance Directives Directive Yes / No Effective Date File Name No Information Encounters Encounter Description Practice Location Reason(s) For Visit Diagnoses Date Provider Providers Copied on Encounter [facility], [address] [place], [id number], [place] [facility] No Information 1 Carmen Bolaños. [address] [facility], [place], [address], [place]. tel:[phone] [facility], [address] [place], [id number], [place] MdBryant Adult medicare preventive (chief complaint) Encounter for screening for other disorderIFG (impaired fasting glucose)Season al allergiesAge-r elated osteoporosis without current pathological fractureEssent ial hypertension, benignLeg crampsMixed hyperlipidemia Body mass index (BMI) 40.0-44.9, adultMedicare annual wellness visit, subsequentAdva nced care planning/couns eling discussionDepr essive disorderSensor ineural hearing loss (SNHL) of both ears 9 Eduardo Pierre. [address] [place] [address], [address], [place]. tel:[phone] Referring Provider: Gabby Clakr, [address] [place] [address], [address]. tel:[phone] [facility], [address] [place], [id number], [place] MdBryant Adult No Information 9 Karen Niño. [address] [place] [address], [place], [address], [place]. tel:[phone] [facility], [address] [place], [id number], [place] [facility] Adult No Information 9 Amanda Sun. [address] [place] [address], [place], [id number], [place]. tel:[phone] OFFICE/OUTPA TIENT VISIT, EST [facility], [address] [place], [id number], [place] Am[place] Adult hypertension (chief complaint)more (chief complaint) Seasonal allergiesRhino sinusitisBilat eral lower extremity edemaAge-relat ed osteoporosis without current pathological fractureEssent ial hypertension, benign Feb-03 17- 9 Rei Agatha. [address] [facility], [place], [id number], [place]. tel:[phone] [facility], [address], [place], [id number], [place] MdlS Adult No Information Nov-0 8-201 8 Karen Niño. [address] [facility], [place], [address], [place]. tel:[phone] [facility], [address], [place], [id number], [place] [facility] Adult No Information 0 5- 8 Karen Niño. [address] [place] [address], [place], [address], [place]. tel:[phone] OFFICE/OUTPA TIENT VISIT, [facility], [address], [place], [id number], [place] [facility] Adult Cold symptoms (chief complaint)Refer ral requested (chief complaint) Body mass index (BMI) 38.0-38.9, adultPost-jarrett pausal atrophic vaginitisViral URI with coughOther viral agents as the cause of diseases classified elsewhereKidne y problemBreast cancer screeningBilat eral lower extremity edema Nov-0 2- 8 Karen Niño. [address] [place] [address], [place], [address], [place]. tel:[phone] Referring Provider: Renay Jones, [address] [place] [address], [place], [address]. tel:[phone] [facility], [address], [place], [id number], [place] [facility] Adult Localized swelling of both lower legs 8 Carmen Loyola. [address] [facility], [place], [id number], [place]. tel:[phone] OFFICE/OUTPA TIENT VISIT, [facility], [address], [place], [id number], [place] [facility] Adult medicare preventive (chief complaint) Essential hypertension, benignIFG (impaired fasting glucose)Sensor ineural hearing loss (SNHL) of both earsAge-relate d osteoporosis without current pathological fractureEncoun ter for general adult medical examination with abnormal findingsLocali zed swelling of both lower legsAbdominal bloating 8 Karen Niño. [address] [place] [address], [place], [address], [place]. tel:[phone] Referring Provider: Renay Jones, [address] [place] [address], [place], [address]. tel:[phone] OFFICE/OUTPA TIENT VISIT, [facility], [address], [place], [id number], [place] MdlS Adult hypertension (chief complaint)abdom inal bloating (chief complaint)abdom inal pain (chief complaint) Abdominal bloatingEssent ial hypertension, benign 8 Karen Niño. [address] [place] [address], [place], [address], [place]. tel:[phone] OFFICE/OUTPA TIENT VISIT, [facility], [address], [place], [id number], [place] MdBryant Adult hypertension (chief complaint)abdom inal bloating (chief complaint) Abdominal bloatingPain, eye, rightEssential hypertension, benign Apr- 8 Karen Niño. [address] [place] [address], [place], [address], [place]. tel:[phone] [facility], [address], [place], [id number], [place] Amado Adult No Information 8 Amanda Sun. [address] [facility], [place], [id number], [place]. tel:[phone] [facility], [address], [place], [id number], [place] [facility] Dental No Information 8 Accay Rachna. [address] [place] [address], [place], [id number], [place]. tel:[phone] [facility], [facility] [address], [place], [id number], [place] [facility] Dental Partial loss of teeth, unspecified cause, unspecified class 8 Accay Rachna. [address] [place] [address], [place], [id number], [place]. tel:[phone] [facility], [facility] [address], [place], [id number], [place] [facility] No Information Accay Rachna. [address] [place] [address], [place], [id number], [place]. tel:[phone] [facility], [facility] [address], [place], [id number], [place] [facility] Dental Encounter for fit/adjst of dental prosthetic device Accay Rachna. [address] [place] [address], [place], [id number], [place]. tel:[phone] OFFICE/OUTPA TIENT VISIT, [facility], [facility] [address], [place], [id number], [place] MdlS Adult hypertension (chief complaint) Essential hypertension, benign Amanda Interiano. [address] [place] [address], [place], [address], [place]. tel:[phone] [facility], [facility] [address], [place], [id number], [place] [facility] Dental caries, unspecifiedDen joselyn worship status Accay Rachna. [address] [place] [address], [place], [id number], [place]. tel:[phone] OFFICE/OUTPA TIENT VISIT, [facility], [facility], [place], [id number], [place] [facility] OBGYN Vaginal dryness (chief complaint) Vaginal drynessPost-me nopausal atrophic vaginitis Sep-1 1-201 7 Bob Hannah. [address] [facility], [place], [place], [id number], [place]. tel:[phone] [facility], [address], [place], [id number], [place] [facility] Dental Dental caries, unspecified Accay Rachna. [address] [place] [address], [place], [id number], [place]. tel:[phone] OFFICE/OUTPA TIENT VISIT, [facility], [address], [place], [id number], [place] [facility]S Adult hypertension (chief complaint)Discu ss test results (chief complaint)vagin al itching (chief complaint)swell ing (chief complaint) Essential hypertension, benignSensorin eural hearing loss (SNHL) of both earsLocalized swelling of lower legVaginal burning Karen Niño. [address] [facility], [place], [address], [place]. tel:[phone] [facility], [address], [place], [id number], [place] [facility] Dental Dental caries, unspecifiedDen joselyn worship status Accay Rachna. [address] [place] [address], [place], [id number], [place]. tel:[phone] OFFICE/OUTPA TIENT VISIT, [facility], [address], [place], [id number], [place] MdlS Adult hypertension (chief complaint)IFG (chief complaint) Body mass index (BMI) 39.0-39.9, adultPre-diabe tesEssential hypertension, benign Karen Niño. [address] [facility], [place], [address], [place]. tel:[phone] [facility], [address], [place], [id number], [place] [facility] Dental Deposits [accretions] on teethPeriodont al disease, unspecified 7 [facility] . [address] [place] [address], [place], [id number]. tel:[phone] OFFICE/OUTPA TIENT VISIT, [facility], [facility], [place], [id number], [place] MdlS Adult prediabetes (chief complaint)hyper tension (chief complaint) Body mass index (BMI) 40.0-44.9, adultPre-diabe tesEssential hypertension, benign Jul- [facility]. [address] [place] [address], [place], [address], [place]. tel:[phone] [facility], [address] [place] [address] Lo, [place], [id number], [place] MdlS Adult IFG (impaired fasting glucose) [facility]. [address] [place] [address], [place], [address], [place]. tel:[phone] [facility], [address] [place] [address] Lo, [place], [id number], [place] MdlS Adult Pre-diabetesMu ltiple allergies [facility]. [address] [place] [address], [place], [address], [place]. tel:[phone] [facility], [address] [place] [address] Lo, [place], [id number], [place] [facility] Dental Encounter for screening for dental disorders Accay Rachna. [address] [place] [address], [place], [id number], [place]. tel:[phone] OFFICE/OUTPA TIENT VISIT, [facility], [facility], [place], [id number], [place] MdlS Adult hypertension (chief complaint)multi ple complaints (chief complaint) Essential hypertension, benignIFG (impaired fasting glucose)Microa lbuminuriaFati melvin, unspecified typeMultiple allergies [facility]. [address] [place] [address], [place], [address], [place]. tel:[phone] Referring Provider: Renay Jones, [address] [facility], [place], [address]. tel:[phone] OFFICE/OUTPA TIENT VISIT, [facility], [address], [place], [id number], [place] MdlS Adult Follow Up of hypertension (chief complaint)depre ssion (chief complaint)form completion continued (chief complaint) Essential hypertensionGa it instabilityHea ring loss of left ear, unspecified hearing loss typeDepressive disorder Apr- 7 Amanda Sun. [address] [facility], [place], [id number], [place]. tel:[phone] OFFICE/OUTPA TIENT VISIT, [facility], [address] [place], [id number], [place] MdlS Adult Follow Up of hypertension (chief complaint) OsteoporosisEs sential hypertension, benign Apr- 7 Karen Niño. [address] [facility], [place], [address], [place]. tel:[phone] OFFICE/OUTPA TIENT VISIT, [facility], [address], [place], [id number], [place] MdlS Adult Discuss test results (chief complaint)hyper tension (chief complaint)const ipation (chief complaint) Essential hypertensionPe josé miguel edemaSlow transit constipation Amanda Sun. [address] [facility], [place], [id number], [place]. tel:[phone] [facility], [address], [place], [id number], [place] MdlS Adult No Information 6 Amanda Sun. [address] [facility], [place], [id number], [place]. tel:[phone] OFFICE/OUTPA TIENT VISIT, [facility], [address], [place], [id number], [place] MdlS Adult Swelling (chief complaint)hyper tension (chief complaint)Medic ation refills (chief complaint) Pedal edemaEssential hypertensionPa in of left heel Nov-0 6 Sebeny Corinne. [address] [facility], [place], [place], [id number], [place]. tel:[phone] OFFICE/OUTPA TIENT VISIT, [facility], [address], [place], [id number], [place] MdlS Adult hypertension (chief complaint)Muscu loskeletal pain (chief complaint) Encounter for screening for diabetes mellitusPain of left heelEssential hypertension, benign Oct-0 3-201 6 Sebeny Corinne. [address] [facility], [place], [place], [id number], [place]. tel:[phone] OFFICE/OUTPA TIENT VISIT, [facility], [address], [place], [place], [id number], [place] MdlS Adult Musculoskeletal pain (chief complaint)ear pain (chief complaint) Other noninfectious chronic otitis externa of both earsPerennial allergic rhinitis, unspecified allergic rhinitis triggerItchy eyesAcute pain of left shoulderEssent ial hypertension, benign Sep-2 9- 6 Jones Renay. [address] [facility], [place], [address], [place]. tel:[phone] OFFICE/OUTPA TIENT VISIT, [facility], [address], [place], [place], [id number], [place] MdlS Adult Hypertension (chief complaint)acid reflux (chief complaint) Abdominal bloatingEssent ial hypertension, benign Sep-0 7- 6 Jones Renay. [address] [facility], [place], [address], [place]. tel:[phone] OFFICE/OUTPA TIENT VISIT, [facility], [address], [place], [id number], [place] MdlS Adult abdominal pain (chief complaint) Abdominal gas pain Sep-0 6-201 6 Moran Day. [address] [facility], [place], [id number], [place]. tel:[phone] OFFICE/OUTPA TIENT VISIT, [facility], [address], [place], [place], [id number], [place] MdlS Adult Discuss test results (chief complaint)Preve ntion (chief complaint)back pain (chief complaint) OsteoporosisVu lvovaginal candidiasisChr onic bilateral low back pain with bilateral sciatica 6 Sebeny Corinne. [address] [facility], [facility] [place], [id number], [place]. tel:[phone] [facility], [address], [place], [place], [id number], [place] MdlS Adult Osteoporosis 6 Sebeny Corinne. [address] [facility], [place], [address], [place]. tel:[phone] OFFICE/OUTPA TIENT VISIT, [facility], [address], [place], [place], [id number], [place] MdlS Adult Discuss test results (chief complaint)hyper tension (chief complaint) Essential hypertension, benignBilatera l anterior knee painScreening for osteoporosisPr e-diabetes 6 Sebeny Corinne. [address] [facility], [facility] [place], [id number], [place]. tel:[phone] [facility], [address], [place], [id number], [place] MdlS Adult No Information 6 Sebeny Corinne. [address] [facility], [facility] [place], [id number], [place]. tel:[phone] OFFICE/OUTPA TIENT VISIT, [facility], [address], [place], [place], [id number], [place] MdlS Adult Swelling (chief complaint)knee pain (chief complaint) Bilateral anterior knee painBilateral lower extremity edemaEssential hypertension, benign 6 Sebeny Corinne. [address] [facility], [place], [place], [id number], [place]. tel:[phone] OFFICE/OUTPA TIENT VISIT, [facility], [address], [place] [facility] [place], [id number], [place] MdlS Adult Medication refill (chief complaint)Mamog marily referral (chief complaint)Aller gies (chief complaint)hyper tension (chief complaint) Allergic rhinitis, unspecified allergic rhinitis typeEssential hypertension, benignScreenin g mammogram, encounter forScreening for hyperlipidemia Screening for diabetes mellitus 201 6 Amanda Sun. [address] [place] [address], [facility] [place], [id number], [place]. tel:[phone] Family History Family Member Type Diagnosis Age At Onset Father Problem (finding) fall (Cause Of ) Mother Problem (finding) Cancer, unknown (Cause Of ) Immunizations Vaccine Date Status Comments [id number] administered Note: Rec eived at [facility], verified via [employer] ; Source: Other Registry Pneumovax administered Source: New Imm unization Record Fluzone (high dose) administered Note: pt had vaccine done in the apartment that she lives. ; Source: Other Provider Influenza, high dose, injectable, split virus, preservative free, Fluzone High-Dose administered Source: New Immuniza tion Record Pneumococcal conjugate PCV 13 administere d Note: Patient states she had it placed in 2012 at another practice[facility] ; Source: New Immunization Record Tdap administered Note: Invalid d ocumented admin date was //2013. ; Source: Other Registry Payers Payer name Insurance type Covered constitution party ID Authoriza tion(s) Medicare 2014 NGS MB [id number] [facility] [id number] Medicare 2014 NGS MB [id number] Medicaid [id number] Medicaid [place] [id number] [facility] [id number] Social History Type Description Quantity Date Captured Comments Alcohol Use Details Unknown Caffeine Use Details Unknown Tobacco Use Status No Information Smoking Status No Information Sex Female Sexual Orientation Straight or heterosexual Apr Gender Identity Female Chief Complaint And Reason For Visit No Information Reason For Referral Reason For Referral No Information Plan Of Treatment Date Type Action Status Goal FOBT. Due on due Goal Influenza Vaccin e. Due on due Goal Depression scree gris. Due on due Goal Prevnar 13 (PCV1 3). Due on due Goal Zoster Vaccine. Due on due Goal MUSEUM DIRECTOR exam. Due on due Goal Zoster vaccine ( ). Due on due Goal Cognitive assess ment. Due on due Goal DEXA scan due Goal DEXA scan. Due on 5 due Goal Colonoscopy. Due on 026 due Goal Prevnar 13 (PCV1 3). Due on due Goal Cognitive assess ment. Due on due Goal Influenza Vaccin e. Due on due Goal Mammogram. Due on 9 due Goal Zoster Vaccine. Due on due Goal MUSEUM DIRECTOR exam. Due on due Goal Depression scree gris. Due on due Goal Lifestyle educat ion regarding diet completed Goal Cognitive assess ment. Due on due Goal MUSEUM DIRECTOR exam. Due on due Goal Prevnar 13 (PCV1 3). Due on due Goal DEXA scan. Due on 5 due Goal Mammogram. Due on 9 due Goal Zoster Vaccine. Due on due Goal Depression scree gris. Due on due Goal Colonoscopy. Due on due Goal Colonoscopy. Due on due Goal Prevnar 13 (PCV1 3). Due on due Goal Zoster Vaccine. Due on due Goal Depression scree gris. Due on due Goal MUSEUM DIRECTOR exam. Due on due Goal Cognitive assess ment. Due on due Goal DEXA scan. Due on due Goal Influenza Vaccin e. Due on due Goal MUSEUM DIRECTOR exam. Due on due Goal Depression scree gris. Due on due Goal Cognitive assess ment. Due on due Goal Influenza Vaccin e. Due on due Goal Prevnar 13 (PCV1 3). Due on due Goal DEXA scan. Due on due Goal Zoster Vaccine. Due on due Goal Colonoscopy. Due on due Goal Colonoscopy. Due on due Goal Prevnar 13 (PCV1 3). Due on due Goal Zoster Vaccine. Due on due Goal Influenza Vaccin e. Due on due Goal Cognitive assess ment. Due on due Goal MUSEUM DIRECTOR exam. Due on due Goal DEXA scan. Due on due Goal Depression scree gris. Due on due Goal Mammogram. Due on due Goal FOBT. Due on due Goal Prevnar 13 (PCV1 3). Due on due Goal DEXA scan. Due on due Goal MUSEUM DIRECTOR exam. Due on due Goal Colonoscopy. Due on 018 due Goal Zoster Vaccine. Due on due Goal Cognitive assess ment. Due on due Goal Depression scree gris. Due on due Goal Influenza Vaccin e. Due on due Goal Prevnar 13 (PCV1 3). Due on due Goal Mammogram. Due on due Goal Depression scree gris. Due on due Goal FOBT. Due on due Goal Cognitive assess ment. Due on due Goal Influenza Vaccin e. Due on due Goal Zoster Vaccine. Due on due Goal DEXA scan. Due on due Goal MUSEUM DIRECTOR exam. Due on due Goal Colonoscopy. Due on 018 due Goal Cognitive assess ment. Due on due Goal Mammogram. Due on due Goal Colonoscopy. Due on 018 due Goal Influenza Vaccin e. Due on due Goal Prevnar 13 (PCV1 3). Due on due Goal Depression scree gris. Due on due Goal Zoster Vaccine. Due on due Goal FOBT. Due on due Goal DEXA scan. Due on due Goal MUSEUM DIRECTOR exam. Due on due Goal FOBT. Due on due Goal Prevnar 13 (PCV1 3). Due on due Goal Zoster Vaccine. Due on due Goal Cognitive assess ment. Due on due Goal Mammogram. Due on due Goal MUSEUM DIRECTOR exam. Due on due Goal DEXA scan. Due on 5 due Goal Depression scree gris. Due on due Goal Colonoscopy. Due on 018 due Goal Influenza Vaccin e. Due on due Goal Mammogram. Due on due Goal Influenza Vaccin e. Due on due Goal Cognitive assess ment. Due on due Goal MUSEUM DIRECTOR exam. Due on due Goal BMP. Due on due Goal FOBT. Due on due Goal Zoster Vaccine. Due on due Goal Mammogram. Due on due Goal FOBT. Due on due Goal MUSEUM DIRECTOR exam. Due on due Goal Cognitive assess ment. Due on due Goal Zoster Vaccine. Due on due Goal BMP. Due on due Goal Mammogram. Due on due Goal Zoster Vaccine. Due on due Goal MUSEUM DIRECTOR exam. Due on due Goal FOBT. Due on due Goal Cognitive assess ment. Due on due Goal BMP. Due on due Goal Cognitive assess ment. Due on due Goal MUSEUM DIRECTOR exam. Due on due Goal FOBT. Due on due Goal Mammogram. Due on due Goal BMP. Due on due Goal Zoster Vaccine. Due on due Goal FOBT. Due on due Goal MUSEUM DIRECTOR exam. Due on due Goal Cognitive assess ment. Due on due Goal Zoster Vaccine. Due on due Goal FOBT. Due on due Goal Zoster Vaccine. Due on due Goal Cognitive assess ment. Due on due Goal MUSEUM DIRECTOR exam. Due on due Goal Zoster Vaccine. Due on due Goal FOBT. Due on due Goal Cognitive assess ment. Due on due Goal MUSEUM DIRECTOR exam. Due on due Goal FOBT. Due on due Goal MUSEUM DIRECTOR exam. Due on due Goal Zoster Vaccine. Due on due Goal Cognitive assess ment. Due on due Goal Lifestyle educat ion regarding diet completed Goal MUSEUM DIRECTOR exam. Due on due Goal Zoster Vaccine. Due on due Goal Cognitive assess ment. Due on due Goal FOBT. Due on due Goal FOBT. Due on due Goal MUSEUM DIRECTOR exam. Due on due Goal Cognitive assess ment. Due on due Goal Zoster Vaccine. Due on due Goal FOBT. Due on due Goal Cognitive assess ment. Due on due Goal MUSEUM DIRECTOR exam. Due on due Goal Zoster Vaccine. Due on due Goal FOBT. Due on due Goal Zoster Vaccine. Due on due Goal Occult Blood, [place]. Due on due Goal MUSEUM DIRECTOR exam. Due on due Goal Cognitive assess ment. Due on due Goal Occult Blood, [place]. Due on due Goal Zoster Vaccine. Due on due Goal Pneumococcal vaccine due Goal Occult Blood, [place]. Due on due Goal Zoster Vaccine. Due on due Goal Zoster Vaccine. Due on due Goal Occult Blood, [place]. Due on due Goal Occult Blood, [place]. Due on due Goal Pneumococcal vaccine due Goal Zoster Vaccine. Due on due Goal Influenza Vaccin e. Due on due Goal Zoster Vaccine. Due on due Goal Influenza Vaccin e. Due on due Goal Zoster Vaccine. Due on due Goal Pneumococcal vaccine due Goal Influenza Vaccin e. Due on due Goal Occult Blood, [place]. Due on due Goal Zoster Vaccine. Due on due Goal Pneumococcal vaccine due Goal Zoster Vaccine. Due on due Goal Colonoscopy V76. 51. Due on due Goal Occult Blood, [place]. Due on due Goal Influenza Vaccin e. Due on due Goal Colonoscopy V76. 51. Due on due Goal Influenza Vaccin e. Due on due Goal Zoster Vaccine. Due on due Goal Pneumococcal vac cine. Due on due Goal Occult Blood, [place]. Due on due Goal Zoster Vaccine. Due on due Goal Occult Blood, [place]. Due on due Goal Influenza Vaccin e. Due on due Goal Pneumococcal vac cine. Due on due Goal Zoster Vaccine. Due on due Goal Influenza Vaccin e. Due on due Goal Pneumococcal vac cine. Due on due Goal Occult Blood, [place]. Due on due Goal DEXA scan. Due on 6 due Goal Zoster Vaccine. Due on due Goal Pneumococcal vac cine. Due on due Goal Influenza Vaccin e. Due on due Goal DEXA scan. Due on 6 due Goal Zoster Vaccine. Due on due Goal Influenza Vaccin e. Due on due Goal Pneumococcal vac cine. Due on due Goal Occult Blood, [place]. Due on due Goal Influenza Vaccin e. Due on due Goal DEXA scan. Due on due Goal Pneumococcal vac cine. Due on due Goal Zoster Vaccine. Due on due Goal Pneumococcal vac cine. Due on due Goal Influenza Vaccin e. Due on due Goal DEXA scan. Due on due Goal Occult Blood, [place]. Due on due Goal Zoster Vaccine. Due on due Goal Pneumococcal vac cine. Due on due Goal Mammogram. Due on due Goal DEXA scan. Due on due Goal Colonoscopy. Due on 026 due Goal Zoster Vaccine. Due on due Goal Influenza Vaccin e. Due on due Goal Occult Blood, [place]. Due on due Referral Ordered: MAMMOGRAM, SCREENING Bilateral ordered Referral Referred To: Compression Stockings 20-30mmHg (2 pairs) Ordered: Referrals: Compression Stockings 20-30mmHg (2 pairs) ordered Referral Ordered: Referrals: Ophthalmology. Evaluate and treat ordered Referral Ordered: Referrals: Otolaryngology. Evaluate and treat ordered Referral Referred To: shower chair Ordered: Referrals: shower chair. Evaluate and treat ordered Referral Referred To: compression stockings Ordered: Referrals: compression stockings ordered Referral Ordered: X-RAY EXAM OF HEEL ordered Referral Ordered: DXA BONE DENSITY, AXIAL ordered Referral Ordered: X-RAY EXAM BOTH KNEES STANDING AP ordered Referral Ordered: MAMMOGRAM, SCREENING ordered Patient Education Dry Skin: After Your Vi sit completed Patient Education Learning About Calcium completed Patient Education Gas and Bloati ng: After Your Visit completed Patient Education Osteoporosis: After You r Visit completed Future Order: Radiology Order MA MMOGRAM, SCREENING Bilateral ([id number]), Added on: New Future Order: Lab Order Microalb umin with creatinine and ratio ([id number]), Ordered on: Ordered Future Order: Lab Order LIPID PA HARSHAD ([id number]), Ordered on: Ordered Future Order: Lab Order CMP ([id number]), Ordered on: Ordered Future Order: Lab Order HEMOGLOB IN A1C ([id number]), Ordered on: Ordered Future Order: Lab Order Microalb umin with creatinine and ratio ([id number]), Ordered on: Ordered Future Order: Lab Order LIPID PA HARSHAD ([id number]), Ordered on: Ordered Future Order: Lab Order BMP ([id number]), Ordered on: Ordered History Of Present Illness Encounter Date Complaint History Of Prese nt Illness medicare preventive Functional S tatus: (Functional status has not changed) on 06/29/2018. Cognitive Status: (Cognitive status has not changed) on 06/29/2018. The ''Up and Go'' test took less than 30 seconds, but the patient needs help with activities of daily living. The patient is not at risk for falls. The patient has not fallen in the last year. The fall(s) did not result in injury. The patient has smoke detectors in the home. The patient does not have firearms in the home. Patient reports using a seatbelt in vehicles. Relevant history is negative for tobacco use, passive vaping exposure, passive smoke exposure, alcohol use. more FEELING SICKnote s that when it is cold out she feels worsehas been feeling this about 3-4 weeksis a cold/flu she says, she gets very congested and will coughsometimes will congestion and a small pain in the chest when she feels like she has phlegmstill able to walk around and do things without chest painsometimes will feel in the backit happens when it is cloudy and going to rain no feverthese will last until she takes alejandro which will make her feel bettershe is buying this because insurance not coveringhas mucus in her nose hypertension Risk factors inc lude age over age 60 and inactive lifestyle. Associated symptoms include chest pain. Pertinent negatives include headache. Referral requested mammogram Cold symptoms Onset: 1 week ag o. The patient describes the cough as productive (of clear sputum). Context: allergies. Associated symptoms include cough and nasal congestion. Pertinent negatives include dyspnea, dyspnea on exertion, fever, sinus pressure and wheezing. The patient has a history of allergies. medicare preventive The patient has not felt depressed and has had interest and pleasure doing things recently. The ''Up and Go'' test took less than 30 seconds and the patient does not need help with activities of daily living. The patient is at risk for falls. The patient has not fallen in the last year. The fall(s) did not result in injury. The patient has smoke detectors in the home. The patient does not have firearms in the home. Patient reports using a seatbelt in vehicles. Patient takes calcium supplements. Patient reports taking Vitamin D. Patient does not take a multivitamin. Patient does not take folic acid. Relevant history is negative for passive smoke exposure, alcohol use. abdominal pain Pain scale: 0/10 . The location is hypogastric, right lower quadrant and left lower quadrant. Pertinent negatives include blood in stool, constipation, diarrhea, dizziness, eructation, fever, flank pain, flatulence, heartburn, nausea, vaginal discharge and vomiting. Additional information: Has stopped verduras and foods with a lot of foods. Has had just a alittle spoon of rice. No improvement of gases after BM. abdominal bloating Verduras are still causing trouble. Feels like all foods are causing more abd bloating. Simethicone is working when she uses it. Low FODMAPs diet reviewed and list of foods given in the past -- she states she is trying her best to follow it and eats very little of everything also in an attempt to lose weight. She remembers that to some extent that abd gases are normal with age. Gas and bloating hand out given at last visit. hypertension Risk factors inc lude age over age 60 and inactive lifestyle. Pertinent negatives include chest pain and headache. hypertension Risk factors inc lude age over age 60 and inactive lifestyle. Pertinent negatives include chest pain, headache, nausea and vomiting. abdominal bloating She is still experiencing gas and bloating. Never tried simethicone. hypertension Risk factors inc lude age over age 60 and inactive lifestyle. Pertinent negatives include chest pain, dyspnea, fatigue, headache, irregular heartbeat/palpitations, nausea and vomiting. Vaginal dryness vaginal itching Her symptoms beg an 1 Year ago. Presently the patient is experiencing vaginal itching and vaginal irritation. Presently the patient is not experiencing vaginal odor and vaginal discharge. The patient is postmenopausal. Her symptoms are associated with vaginal burning but she denies itching skin of vaginal/groin. Additional information: States that she had hysterectomy - uses acetaminophen, which helps. swelling The swelling occ urred 1 year ago The swelling has worsened. The swelling is associated with myalgia. The patient denies any appetite change, chest pain, dyspnea, fatigue, headache, joint pain, paroxysmal nocturnal dyspnea, pruritus, purulent drainage, rash, weight gain or weight loss. Additional information: Worse with heat.. hypertension Risk factors inc lude age over age 60 and inactive lifestyle. Pertinent negatives include chest pain and headache. Discuss test results Otolaryngol ogy hypertension Risk factors inc lude age over age 60 and inactive lifestyle. IFG Here for nutriti on label reading class with [facility]. Wheat bread and cafe/lecheGoing to get MRI per ENT tomorrow prediabetes Accuchek 125 Had piece of wheat bread and coffee with almond milk hypertension Risk factors inc lude age over age 60 and inactive lifestyle. Pertinent negatives include chest pain and fatigue. hypertension Risk factors inc lude age over age 60 and inactive lifestyle. Pertinent negatives include chest pain, dyspnea and headache. Additional information: States that she only received nifedipine multiple complaints States that she's felt sin animo and swelling in BLE and off balance in the last week.States that left side of face hurts sometimes b/c of a molar that needs to be removed.She also states that she has allergies and has a lot of itching eyes. form completion continued Report s form to claim disability for citizenship exam previously completed by therapist? But this did not qualify patient for disabilty Follow Up of hypertension Risk f actors include age over age 60 and inactive lifestyle. Pertinent negatives include chest pain. depression This is an initi al visit. The first episode occurred in 1999. The patient presents with anxious/fearful thoughts, depressed mood, difficulty concentrating, difficulty falling asleep, difficulty staying asleep and fatigue but denies increased energy, racing thoughts or thoughts of or suicide. The patient's risk factors include of a friend or loved one and history of depression. The patient's risk factors exclude social isolation. The depression is associated with chronic pain. 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 Follow Up of hypertension Risk f actors include age over age 60 and inactive lifestyle. Pertinent negatives include chest pain, dyspnea, fatigue, nausea and vomiting. Additional information: Brings meds in for reconciliation. States she was allergic to capsaicin and ammonium lactate lotion. Has been taking nifedipine rx'd by a Dr. Ozuna (she says she's been taking this for yrs). hypertension Risk factors inc lude age over age 60 and inactive lifestyle. Pertinent negatives include chest pain, confusion, dyspnea, headache, nausea, visual disturbances and vomiting. Additional information: reports that she has stopped HCTZ, unclear cause. Reports she is still taking nifedipine. Patient did not bring medications today. constipation The patient desc ribes it as difficulty passing. She is also experiencing bloating and pain with passing stool. Pertinent negatives include black tarry stools, bleeding with bowel movement, nausea and vomiting. Additional information: fluctuates between normal BM and constipation and reports prunes will help pass normal BM. Discuss test results last colono scopy 02/12/16 performed at [facility], reportedly normal per pt Swelling The swelling occ urred 1 month ago The swelling remained unchanged. and is constant. The patient had a response to cold compress and did not respond to elevation. The patient denies any bleeding, chest pain, dyspnea, fatigue, fever, paroxysmal nocturnal dyspnea, rash, skin discoloration or warmth. hypertension Risk factors inc lude age over age 60 and inactive lifestyle. Pertinent negatives include chest pain, dyspnea and fatigue. Medication refills Musculoskeletal pain Onset: 2 to 3 months ago. Severity level is 5. It occurs constantly and is improving. Location: left foot (heel). There is no radiation. The pain is aching, piercing and sharp. Context: there is no injury. The pain is aggravated by sitting, walking and standing. Associated symptoms include swelling. Pertinent negatives include decreased mobility, limping, nocturnal awakening, nocturnal pain, tingling in the legs and weakness. Additional information: recently switched to athletic shoes. hypertension Risk factors inc lude age over age 60 and inactive lifestyle. Pertinent negatives include chest pain. ear pain Additional infor mation: Itching in bilat ears. Also with itching eyes sometimes. Musculoskeletal pain Onset: 1 mo nth ago. Severity level is 7. The problem is worsening. Location: left shoulder (rotator cuff). The pain radiates to the left hand pain. The pain is aching and throbbing. Context: there is no injury. The pain is aggravated by movement, walking and standing. Associated symptoms include nocturnal awakening, nocturnal pain and swelling. Additional information: More pain at night. Sometimes with spasm in the L side. 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 When she's moving arm the pain will hurt, but then it will go away. Hypertension Risk factors inc lude age over age 60 and inactive lifestyle. Pertinent negatives include chest pain. acid reflux The onset of the heartburn was 5 years ago. The severity is 5. The problem is improving. It occurs daily. Associated symptoms include nausea, reflux and vomiting. Additional information: Feels like gases come from lower back that radiate all the way around to bilat lower abd. States that if she goes one hour without food when she's hungry she will have pain. Vomiting. abdominal pain Onset: 1 Week 3 Days. Pain scale: 4/10. The location is diffuse. These symptoms occur after meals. Associated symptoms include bloating. Pertinent negatives include back pain, blood in stool, diarrhea, dizziness, dyspnea, fever, heartburn, nausea, vomiting, weight gain and weight loss. Prevention Colonoscopy done on 03/10/2015 in [facility]. back pain Onset: 1 month a go. The problem is worsening. Location of pain is lower back. Pain is radiated to the dermatome anteriorly.The patient describes the pain as an ache. Context: walking. Symptoms are aggravated by daily activities, twisting, walking and cold. Symptoms are relieved by over the counter medication: acetaminophen. Additional information: with bilateral sciatica. Discuss test results Dexa Scan r esults from 08/26/2015 hypertension Risk factors inc lude age over age 60 and inactive lifestyle. Pertinent negatives include chest pain, confusion, dyspnea, fatigue, headache, hematuria, nausea and vomiting. Discuss test results Swelling The swelling rem ained unchanged. The swelling is random. The patient denies any chest pain, fatigue, fever, myalgia or numbness. knee pain Onset: 6 months ago. It occurs occasionally. Location: bilateral knee. The pain radiates to the feet bilaterally. The pain is burning. Context: there is no injury. The pain is aggravated by night pain. The pain is relieved by OTC medicines: acetaminophen and vapor rub. Associated symptoms include nocturnal pain, swelling and tingling in the legs. Pertinent negatives include joint instability, numbness, spasms and weakness. Additional information: legs get hard . Mamogram referral Medication refill Allergies The patient pres ents with burning in eyes, itchy eyes, itchy throat and post nasal drainage. The symptoms are felt to be related to season change. The patient is also experiencing cough, nasal congestion, nasal drainage, post nasal drainage and sneezing. The patient denies nausea. Additional information: reports palpitations with levocetirizine. hypertension It is currently stable. Risk factors include age over age 60 and inactive lifestyle. Pertinent negatives include chest pain, confusion, dyspnea, hematuria, nausea and vomiting. Additional information: taking nifedipine 30 mg daily Functional Status Date Functional Assessmen t No Information Instructions Date Instruction Additional Infor mation Counseled on dietary changes Counseled on weight reduction Giving encouragement to exercise Related to Body mass index (BMI) 40.0-44.9, adult Lifestyle education regarding di et Related to Body mass index (BMI) 40.0-44.9, adult Pt reports chronic yeast infections I suspect post-menopausal atrophic vaginitis and if complaint continues she may benefit from premarin cream Related to Post-menopausal atrophic vaginitis Reports hx of kidney infection and stone in DR Related to Kidney problem 1 tsp honey w/ cough warm fluids to calm the throat Menthol cough dropsplenty of fluids saline nasal rinsesTessalon perlesRTO if chest pain, fever, worsening sxs Related to Viral URI with cough H. pylori testing ne emilt/c GI referral in future for possible SIBO w/u Related to Abdominal bloating Needs compression st ockings - see telephone messageBaseline labsElevate legsF/u pending lab results Related to Localized swelling of both lower legs Educated on exercise , weight management, dietary changes.Advised re: risks a/w diabetesWill continue to monitor Related to IFG (impaired fasting glucose) Has f/u with ENT in August (f/u an nually) Related to Sensorineural hearing loss (SNHL) of both ears Medicare Wellness fo ana completed.Vaccines [id number] - [id number] - todayFlu - UTDZoster - recommendedScreenings recommended:DEXA: UTDColonoscopy/InSure-Fit: UTDMammogram: Annual HIV: n/aLabs orderedEducation: Advance Care Planning handout givenF/u: 1 year annual preventive Related to Encounter for general adult medical examination with abnormal findings Stable and at goal t ju. JNC 8 goals are <140/90 if less than <60 yo, <150/90 if older than 65 yo. Low salt diet - discussed side effects of uncontrolled HTNReport chest pain, shortness of breath, edemaContinue current medicationRTO 3 months Related to Essential hypertension, benign Counseled on dietary changes Counseled on weight reduction Stable and at goal t ju. JNC 8 goals are <140/90 if less than <60 yo, <150/90 if older than 65 yo. Low salt diet - discussed side effects of uncontrolled HTNReport chest pain, shortness of breath, edemaContinue current medicationRTO 3 months Related to Essential hypertension, benign H. pylori testing to dayDiscussed tx as indicatedt/c GI referral in future for possible SIBO w/u Related to Abdominal bloating States that she was told at one point she had the beginning of glaucoma Related to Pain, eye, right Low FODMAPs diet rev iewed and list of foods givenThis is normal with age to have looser intestinal muscles causing increased gas and bloating painLow suspicion for infectious cause Gas and bloating hand out givenKeep journal - avoid the foods you already know cause issuesrx: simethicone 125 mg as writtenRTO PRN Related to Abdominal bloating Please schedule appt for ENT for MRI results Related to Sensorineural hearing loss (SNHL) of both ears Not addressed todayA dvised to please schedule appt with MUSEUM DIRECTOR -- I suspect that pt may benefit from topical estrogen, but will defer to MUSEUM DIRECTOR for eval and txAppt scheduled for 10/2016 Related to Vaginal burning BilaterallyLabs revi ewed - low probability of liver, renal, or cardiac etiology given labs and sxsLikely venous insufficiencyrx: furosemide 20 mg x 7 daysCompression stockings to be orderedElevate legs frequentlyF/u 3 mos Related to Localized swelling of lower leg Controlled. Reviewed goal <140/90 (<150/90 if >60 yrs).continue current meds - confirmed with pharmacy that she has had nifedipine 30 mg AND HCTZ 12.5 mgLabs (BMP, urine microalb/cr):Encouraged medication compliance.Follow up: 3 mo Related to Essential hypertension, benign Attended [facility] Nutrition Education class and educated on exercise, weight management, dietary changes.Advised re: risks a/w diabetesWilucy continue to monitor Related to Pre-diabetes Controlled. Reviewed goal <140/90 (<150/90 if >60 yrs).continue current meds - confirmed with pharmacy that she has had nifedipine 30 mg AND HCTZ 12.5 mgLabs (BMP, urine microalb/cr):Encouraged medication compliance.Follow up: 3 mo Related to Essential hypertension, benign Giving encouragement to exercise Related to Body mass index (BMI) 39.0-39.9, adult Lifestyle education regarding di et Related to Body mass index (BMI) 39.0-39.9, adult Attended [facility]'s Nutrition Education class and educated on exercise, weight management, dietary changes.Advised re: risks a/w diabetesWilucy continue to monitor Related to Pre-diabetes Controlled. Reviewed goal <140/90 (<150/90 if >60 yrs).continue current meds - confirmed with pharmacy that she has had nifedipine 30 mg AND HCTZ 12.5 mgLabs (BMP, urine microalb/cr):Encouraged medication compliance.Follow up: 3 mo Related to Essential hypertension, benign Itchy ears, eyes, na steve congestionMust use fluticasone nasal spray DAILY followed by valsalvaMake f/u appt with ophtho since you're dueMake appt with dentist May use alejandro PRNF/u if no improvement Related to Multiple allergies Due for labs Related to Fatig ue, unspecified type Controlled. Reviewed goal <140/90 (<150/90 if >60 yrs).continue current meds - confirmed with pharmacy that she has had nifedipine 30 mg AND HCTZ 12.5 mgLabs (BMP, urine microalb/cr):Encouraged medication compliance.Follow up: 3 mo Related to Essential hypertension, benign Stable and at goal t ju. JNC 8 goals are <140/90 if less than <60 yo, <150/90 if older than 65 yo. Low salt dietReport chest pain, shortness of breath, edemaContinue current medicationsRTO 3 months Related to Essential hypertension, benign rx: capsaicinAvoid a ggravating movementsPlease f/u if worsens or develops weakness Related to Acute pain of left shoulder Use fluticasone daily Related to Perennial allergic rhinitis, unspecified allergic rhinitis trigger rx: zaditor Avoid allergen Relat ed to Itchy eyes dexamethasone dropsC ontinue fluticasoneNO Q-TIPS!! 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 JNC 8 goals are <140/90 if less than <60 yo, <150/90 if older than 65 yo. Low salt dietReport chest pain, shortness of breath, edemaContinue current medication: HCTZ 12.5mgRTO 3 months Related to Essential hypertension, benign This is normal with age to have looser intestinal muscles causing increased gas and bloating painLow suspicion for infectious cause Gas and bloating hand out givenKeep journal - avoid the foods you already know cause issuesrx: simethicone 125 mg as writtenRTO 2-4 weeks Related to Abdominal bloating Rx simethicone Julianen sagrario to keep a symptom diary to associate offending foods with symptomsReduce fatty foods, spiced foods, onions and garlic, tomato-based sauces, caffeinated beverages (isma, coffe, chocolate), alcoholEat smaller meals Related to Abdominal gas pain Assessments Type Assessment Date No Information Patient Care Teams Name Effective Dates (start - stop) Status Members No Information
--- OUTSIDE RECORDS SUMMARY | 2024-05-09 16:47 | XMS_ITS ---
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 Role Phone Sarai Simmons Unavailable [phone] AUGUSTUS JACKMAN Unavailable [phone] Reason for Referral Not Available Allergies, adverse [...] brennen 2023-05-05 N/A [facility] Active 2023-05-05 [...] (do not use for phone, instead use [id number]) [facility] [place]05[place]2023 Mixed incontinenceEssential (primary) hypertensionAtrial premature depolarizationMorbid (severe) obesity due to excess caloriesOther problems related to medical facilities and other health careOther abnormalities of gait and mobilityLumbago with sciatica, unspecified sideOther chronic pain New patient,40-59min; chronic exacerbation, 2 stable chronic or 1 acute illness add add modifier 95 for video (do not use for phone, instead use 92411-30) [facility] [place] 05/05/2023 New patient,40-59min; chronic exacerbation, 2 stable chronic or 1 acute illness add add modifier 95 for video (do not use for phone, instead use 45322-17) [facility] [place] 05/05/2023 New patient,40-59min; chronic exacerbation, 2 stable chronic or 1 acute illness add add modifier 95 for video (do not use for phone, instead use 83784-28) [facility] [place] 05/05/2023 New patient,40-59min; chronic exacerbation, 2 stable chronic or 1 acute illness add add modifier 95 for video (do not use for phone, instead use 97955-76) [facility] [place] 05/05/2023 New patient,40-59min; chronic exacerbation, 2 stable chronic or 1 acute illness add add modifier 95 for video (do not use for phone, instead use 42065-61) [facility] [place] 05/05/2023 New patient,40-59min; chronic exacerbation, 2 stable chronic or 1 acute illness add add modifier 95 for video (do not use for phone, instead use 28611-95) [facility] [place] 05/05/2023 New patient,40-59min; chronic exacerbation, 2 stable chronic or 1 acute illness add add modifier 95 for video (do not use for phone, instead use 62915-17) [facility] [place] 05/05/2023 New patient,40-59min; chronic exacerbation, 2 stable chronic or 1 acute illness add add modifier 95 for video (do not use for phone, instead use 34385-58) [facility] [place] 05[place]/2023 New patient,40-59min; chronic exacerbation, 2 stable chronic or 1 acute illness add add modifier 95 for video (do not use for phone, instead use 75478-03) [facility] [place] 05/05/2023 Vital Signs Date of Collection Vitals 2023-05-05 05:30:31 Height - 154.94 cmWe ight - 86.18 kgBody Mass Index (BMI) - 35.9 kg/m2BP Diastolic - 70.0 mm[Hg]BP Systolic - 120.0 mm[Hg] Social History Social History Social History Observation Description Effec tive Time Current Smoking Status Never smoker 3 Sex Female Gender identity Woman History of Procedures Procedures Service Procedure code Service date Servicing provider Phone# New patient,40-59min; chronic exacerbation, 2 stable chronic or 1 acute illness add add modifier 95 for video (do not use for phone, instead use 28621-13) 02012 2023-05-05 No Data Available No Data Availa [...]
== END 2024-05-09 16:06 | disposition home or self-care (01) ==
LOC: HO.HGI 15:25
PROVIDERS: PCP Nurse Practitioner Primary Care; Visit Provider Nurse Practitioner
DX: K59.09 Other constipation (principal); R14.0 Abdominal distension (gaseous)
CPT/HCPCS: 99213

== ENCOUNTER → 2024-05-09 15:24 | Outpatient (BNVA) | payer OTHER, SELFPAY | PROVIDERS: PCP Nurse Practitioner Primary Care; Visit Provider Nurse Practitioner | DX: K59.09 Other constipation (principal); R14.0 Abdominal distension (gaseous) | CPT/HCPCS: 99212 ==